=== PATIENT | female | born 1965 | race Caucasian/White ===

== ENCOUNTER → 2018-11-18 | Outpatient (CLI) | payer BC ==
--- NOTE | 2018-11-18 13:24 | Diagnostic Imaging Report ---
PATIENT HISTORY: STRESS FRACTURE LEFT FOOT. TECHNIQUE: Three views of the left foot. COMPARISON: 10/11/2018. FINDINGS: Redemonstrated is a nondisplaced fracture of the proximal left metatarsal shaft. There appear to be mild healing changes with adjacent sclerosis and periosteal reaction. Alignment appears unchanged. No new fractures are seen. IMPRESSION: 1. Healing fracture of the proximal left metatarsal shaft in stable alignment. Dictated by: Dictated on workstation # [id number]
== END ==
LOC: RAD FS 12:58
PROVIDERS: ATTEND Nurse Practitioner
DX: M84.375D Stress fracture, left foot, subsequent encounter for fracture with routine healing (principal)
CPT/HCPCS: 73630

== ENCOUNTER → 2018-12-21 | Outpatient (CLI) | payer BC ==
--- NOTE | 2018-12-21 10:47 | Diagnostic Imaging Report ---
INDICATION: Followup fracture left fourth metatarsal. FINDINGS: The transverse fracture proximal shaft of the fourth metatarsal is again demonstrated. There has been some continued bony callus formation though fracture line is still visible. Alignment is good. No new fractures have developed. No significant degenerative changes noted throughout the foot. IMPRESSION: Nondisplaced proximal fourth metatarsal shaft fracture with continued healing. Dictated by: Dictated on workstation # [id number]
== END ==
LOC: RAD FS 08:58
PROVIDERS: ATTEND Nurse Practitioner
DX: S92.345D Nondisplaced fracture of fourth metatarsal bone, left foot, subsequent encounter for fracture with routine healing (principal)
CPT/HCPCS: 73630

== ENCOUNTER 2019-04-15 10:45 | Emergency (ER) | payer BC ==
[~2019-04-15] VITALS: Ht 160 cm; Wt 90.0 kg
[2019-04-15 11:20] LABS: WHITE BLOOD COUNT 20.2 10^3/uL (4.3-11.0)
--- NOTE | 2019-04-15 11:20 | ED General ---
General Stated Complaint: DIZZINESS,FALL Source of Information: Patient Exam Limitations: No Limitations (CRISTOBAL AL MED STUDENT) History of Present Illness Date Seen by Provider: Apr 15, 2019 Time Seen by Provider: 11:01 Initial Comments Pt presents to ED from [facility] clinic after reporting fall at home. States she got up from sitting to go to the kitchen, experienced lightheadedness and fell. She did not lose consciousness and fell onto her rear. She states the area she fell on is not painful, just sore. Pt has history of anemia requiring blood transfusions, last two years ago. [facility] MECHANIC CHIEF referred her to clinic for possible blood transfusion. Previously fell one week ago but denies injury/LOC from that fall as well. Past medical history is notable for vasculitis. Pt also experiencing symptoms related to sinusitis she was diagnosed with by [facility] including cough, chest congestion and shortness of breath lasting two weeks. Timing/Duration: 1-3 Hours Severity: Mild Associated Systoms: No Chest Pain, No Cough, No Fever/Chills; Headaches; No Loss of Appetite; Malaise; No Nausea/Vomiting, No Shortness of Air (CRISTOBAL AL MED STUDENT) Initial Comments Here with report of intermittent dizziness and 2 falls at home. Does have history of anemia. Seen at [facility] and referred here for concerns about low blood counts. Her blood count was not checked there though. Denies hitting her head but she is not entirely sure. She does have drooping right eyelid that has been going on for about 3 months. Denies nausea or vomiting. Denies fever or chills. Has been treated for sinusitis for the last few weeks and she is currently on her second round of doxycycline for this. Denies dysuria but did have diarrhea this morning. Severity: Mild Associated Systoms: No Fever/Chills, No Shortness of Air (DION SCALES MD) Allergies and Home Medications Allergies Coded Allergies: cephradine (Verified Allergy, Unknown, 04/15/19) simvastatin (Verified Allergy, Unknown, 04/15/19) Patient Home Medication List Home Medication List Reviewed: Yes (CRISTOBAL AL MED STUDENT) Home Medication List Reviewed: Yes (DION SCALES MD) Review of Systems Review of Systems Constitutional: No chills, No dizziness, No fever, No malaise, No weakness EENTM: nose congestion (related to sinusitis ); No ear discharge, No hearing loss, No ear pain, No eye pain, No vision loss Respiratory: see HPI, cough, short of breath Cardiovascular: No chest pain, No edema, No Hx of Intervention, No palpitations Gastrointestinal: No abdominal pain, No constipation; diarrhea (one episode this morning); No dysphagia, No loss of appetite, No nausea, No vomiting Genitourinary: No frequency, No incontinence, No pain Musculoskeletal: No back pain, No joint pain Skin: No lesions, No lumps, No rash Psychiatric/Neurological: Headache; Denies Numbness, Denies Tingling, Denies Tremors, Denies Weakness Hematologic/Lymphatic: Anemia, Easy Bruising (CRISTOBAL AL,MED STUDENT) All Other Systems Reviewed Negative Unless Noted: Yes (DION SCALES MD) Past Xntveag-Vmcerb-Zzdaud Hx Past Med/Social Hx: Reviewed Nursing Past Med/Soc Hx (DION SCALES MD) Patient Social History Recent Foreign Travel: No Contact w/Someone Who Travel: No (CRISTOBAL AL MED STUDENT) Family Medical History Reviewed Nursing Family Hx (DION SCALES MD) Heart Disease, CAD Under 55 Years Old (father of [place] at 38) (CRISTOBAL ALMED STUDENT) Physical Exam Vital Signs Vital Signs - First Documented 04/15/19 11:00 Temp 35.7 Pulse 71 Resp 18 B/P (MAP) 111/59 (76) Pulse Ox 100 O2 Delivery Room Air (DION SCALES MD) Vital Signs Capillary Refill : (CRISTOBAL ALMED STUDENT) Height, Weight, BMI Height: '" Weight: lbs. oz. kg; BMI Method: General Appearance: No Apparent Distress, WD/WN Eyes: Bilateral Eye Normal Inspection, Bilateral Eye PERRL, Bilateral Eye EOMI HEENT: TMs Normal, Pharynx Normal Neck: Non Tender, Supple Respiratory: Chest Non Tender, Lungs Clear, Normal Breath Sounds, No Accessory Muscle Use, No Respiratory Distress Cardiovascular: Regular Rate, Rhythm, No Edema, No Gallop, No Murmur, Normal Peripheral Pulses Gastrointestinal: Non Tender, Soft Back: No CVA Tenderness, No Vertebral Tenderness Extremity: No Calf Tenderness Neurologic/Psychiatric: Alert, Oriented x3 Skin: Normal Color, Warm/Dry (CRISTOBAL AL,MED STUDENT) General Appearance: No Apparent Distress, WD/WN Eyes: Left Eye Other (lid droop to the left eye that is chronic for 3 months) HEENT: TMs Normal, Pharynx Normal Neck: Non Tender, Supple Respiratory: Lungs Clear, Normal Breath Sounds Cardiovascular: Regular Rate, Rhythm, No Murmur Gastrointestinal: Non Tender, Soft Back: No CVA Tenderness, No Vertebral Tenderness Extremity: Normal Range of Motion, Non Tender, No Calf Tenderness Neurologic/Psychiatric: Alert, Oriented x3 Skin: Normal Color, Warm/Dry (DION SCALES MD) Progress/Results/Core Measures Suspected Sepsis SIRS Temperature: Pulse: Respiratory Rate: Laboratory Tests 04/15/19 11:00: White Blood Count 20.2H Blood Pressure / Mean: Laboratory Tests 04/15/19 11:00: Creatinine 1.14, Platelet Count 538H, Total Bilirubin 0.5 (CRISTOBAL AL,MED STUDENT) Results/Orders Lab Results Laboratory Tests Test 04/15/19 11:00 04/15/19 11:55 Range/Units White Blood Count 20.2 H 4.3-11.0 10^3/uL Red Blood Count 4.01 L 4.35-5.85 10^6/uL Hemoglobin 9.6 L 11.5-16.0 G/DL Hematocrit 31 L 35-52 % Mean Corpuscular Volume 77 L 80-99 FL Mean Corpuscular Hemoglobin 24 L 25-34 PG Mean Corpuscular Hemoglobin Concent 31 L 32-36 G/DL Red Cell Distribution Width 18.3 H 10.0-14.5 % Platelet Count 538 H 130-400 10^3/uL Mean Platelet Volume 10.3 7.4-10.4 FL Neutrophils (%) (Auto) 85 H 42-75 % Lymphocytes (%) (Auto) 8 L 12-44 % Monocytes (%) (Auto) 6 0-12 % Eosinophils (%) (Auto) 0 0-10 % Basophils (%) (Auto) 0 0-10 % Neutrophils # (Auto) 17.1 H 1.8-7.8 X 10^3 Lymphocytes # (Auto) 1.6 1.0-4.0 X 10^3 Monocytes # (Auto) 1.2 H 0.0-1.0 X 10^3 Eosinophils # (Auto) 0.0 0.0-0.3 10^3/uL Basophils # (Auto) 0.1 0.0-0.1 10^3/uL Neutrophils % (Manual) 82 % Lymphocytes % (Manual) 7 % Monocytes % (Manual) 6 % Eosinophils % (Manual) 0 % Basophils % (Manual) 0 % Metamyelocytes % 1 % Band Neutrophils 4 % Nucleated Red Blood Cells 1 Hypochromasia MODERATE Anisocytosis SLIGHT Microcytosis MODERATE Sodium Level 132 L 135-145 MMOL/L Potassium Level 3.9 3.6-5.0 MMOL/L Chloride Level 94 L 98-107 MMOL/L Carbon Dioxide Level 20 L 21-32 MMOL/L Anion Gap 18 H 5-14 MMOL/L Blood Urea Nitrogen 52 H 7-18 MG/DL Creatinine 1.14 0.60-1.30 MG/DL Estimat Glomerular Filtration Rate 50 BUN/Creatinine Ratio 46 Glucose Level 113 H 70-105 MG/DL Calcium Level 9.4 8.5-10.1 MG/DL Corrected Calcium 9.9 8.5-10.1 MG/DL Total Bilirubin 0.5 0.1-1.0 MG/DL Aspartate Amino Transf (AST/SGOT) 46 H 5-34 U/L Alanine Aminotransferase (ALT/SGPT) 24 0-55 U/L Alkaline Phosphatase 478 H 40-136 U/L Total Protein 6.7 6.4-8.2 GM/DL Albumin 3.4 3.2-4.5 GM/DL Urine Color YELLOW Urine Clarity CLEAR Urine pH 5.5 5-9 Urine Specific [place] 1.020 1.016-1.022 Urine Protein NEGATIVE NEGATIVE Urine Glucose (UA) NEGATIVE NEGATIVE Urine Ketones NEGATIVE NEGATIVE Urine Nitrite NEGATIVE NEGATIVE Urine Bilirubin NEGATIVE NEGATIVE Urine Urobilinogen 0.2 < = 1.0 MG/DL Urine Leukocyte Esterase 1+ H NEGATIVE Urine RBC (Auto) NEGATIVE NEGATIVE Urine RBC NONE /HPF Urine WBC 10-25 H /HPF Urine Squamous Epithelial Cells 5-10 /HPF Urine Crystals NONE /LPF Urine Bacteria MODERATE H /HPF Urine Casts PRESENT /LPF Urine Hyaline Casts 0-2 H /LPF Urine Mucus NEGATIVE /LPF Urine Culture Indicated YES (DION SCALES MD) My Orders Orders - DION SCALES MD Ct Head Wo (04/15/19 10:54) Cbc With Automated Diff (04/15/19 10:54) Comprehensive Metabolic Panel (04/15/19 10:54) Ed Iv/Invasive Line Start (04/15/19 10:54) Ua Culture If Indicated (04/15/19 11:20) Ns Iv 500 Ml (Sodium Chloride 0.9%) (04/15/19 11:21) Manual Differential (04/15/19 11:00) Ondansetron Injection (Zofran Injectio (04/15/19 12:15) Chest Pa/Lat (2 View) (04/15/19 12:16) Urine Culture (04/15/19 11:55) (DION SCALES MD) Medications Given in ED Current Medications Medications Dose Ordered Sig/Eduardo Route Start Time Stop Time Status Last Admin Dose Admin Ondansetron HCl 4 mg ONCE ONCE IVP 04/15/19 12:15 04/15/19 12:16 DC 04/15/19 12:09 4 MG Sodium Chloride 500 ml @ 0 mls/hr Q0M ONCE IV 04/15/19 11:21 04/15/19 11:22 DC 04/15/19 11:30 999 MLS/HR (DION SCALES MD) Vital Signs/I&O 04/15/19 11:00 Temp 35.7 Pulse 71 Resp 18 B/P (MAP) 111/59 (76) Pulse Ox 100 O2 Delivery Room Air (DION SCALES MD) Vital Signs/I&O Capillary Refill : (CRISTOBAL AL,MED STUDENT) Progress Note : Time: 11:25 Progress Note Seen and evaluated. Ordering CBC, CMP, UA and CRP to evaluate lightheadedness. Considering pt has now had two falls within a week, will perform head CT to eval for acute processes. Admin 500mL normal saline. (CRISTOBAL AL,MED STUDENT) Progress Note : Progress Note I have seen and evaluated the patient and agree with above except as indicated. Have directed the plan of care. IV, labs, normal saline 500 mL bolus ordered. UA ordered as well as two-view chest x-ray ordered. Patient is feeling better throughout the course. 1330: Patient is improved but does have mild headache return. Toradol 30 mg IV ordered. UA is concerning for possible urinary tract infection. We will stop the doxycycline and initiate Omnicef. She has taken Omnicef without difficulty in the past. She feels comfortable going home. Discharged home with return precautions. Patient verbalize understanding instructions and agreement with plan. Alkaline phosphatase was elevated at are not sure the reason for that. She will follow-up with her doctor and with hematology clinic, Dr. Mayer. I have asked her to talk with them about this as well. I have sent a copy of the chart both clinics. Discharged home with return precautions. Patient verbalize understanding instructions and agreement with plan (DION SCALES MD) Diagnostic Imaging Diagonstic Imaging: CT Plain Films/CT/US/NM/MRI: head Comments [facility], [place], [place] NAME: [facility]E [facility] REC#: [id number] PT STATUS: REG ER : 1965 PHYSICIAN: DION SCALES MD ADMIT DATE: 04/15/19/ER FS Draft Date of Exam:04/15/19 CT HEAD WO PROCEDURE: CT head without contrast. TECHNIQUE: Multiple contiguous axial images were obtained through the brain without the use of intravenous contrast. Auto Exposure Controls were utilized during the CT exam to meet ALARA standards for radiation dose reduction. INDICATION: Fall and dizziness. No prior studies are available for comparison. The ventricles and sulci are within normal limits. No sulcal effacement or midline shift is identified. No acute intra-axial or extra-axial hemorrhage is detected. Cisterns are patent. Visualized paranasal sinuses are clear. IMPRESSION: No acute intracranial process is detected. Dictated on workstation # [id number] Dict: 04/15/19 1130 Trans: 04/15/19 1131 [facility] [id number] Interpreted by: KATIE ADDISON MD Electronically signed by: Diagonstic Imaging: Xray Plain Films/CT/US/NM/MRI: chest Comments [facility] [place] [place] NAME: THEE [facility] REC#: [id number] PT STATUS: REG ER : 1965 PHYSICIAN: DION SCALES MD ADMIT DATE: 04/15/19/ER FS Draft Date of Exam:04/15/19 CHEST PA/LAT (2 VIEW) EXAMINATION: CHEST (PA AND LATERAL) CLINICAL INDICATION: 53-year-old female, dizziness and falls. COMPARISON: None. FINDINGS: Heart size and mediastinal contours are unremarkable. There is no identified pneumothorax. There is no pleural effusion. There is no identified focal airspace consolidation. IMPRESSION: No identified acute cardiopulmonary abnormality. Dictated on workstation # [id number] Dict: 04/15/19 1229 Trans: 04/15/19 1235 [facility] [id number] Interpreted by: BENNY YUSUF MD Electronically signed by: (CRISTOBAL AL,MED STUDENT) Departure Impression Primary Impression: Urinary tract infection Qualified Codes: N30.00 - Acute cystitis without hematuria Additional Impressions: Sinusitis Qualified Codes: J01.90 - Acute sinusitis, unspecified Elevated alkaline phosphatase level Disposition: 01 HOME, SELF-CARE Condition: Improved Departure-Patient Inst. Decision time for Depature: 13:37 (DION SCALES MD) Referrals: [facility] [place]) Primary Care Physician BETH VVIAR APRN (Family) Primary Care Physician Patient Instructions: Urinary Tract Infection, Adult (DC), Sinusitis, Adult (DC), Alkaline Phosphatase Test Add. Discharge Instructions: Stop the doxycycline and start the Omnicef as prescribed. Follow-up with your doctor and your assistant case manager for recheck and further evaluation. Discussed with them about your elevated alkaline phosphatase level as they may need to follow that. Return for worse pain, fever, vomiting, weakness, breathing problems or other concerns as needed. Drink plenty of fluids. Scripts Cefdinir (Cefdinir) 300 Mg Capsule 300 MG PO BID, #14 CAP 0 Refills Prov: DION SCALES MD 04/15/19 Copy Copies To 1: GREG MAYER MD Copies To 2: NUZHAT GRAFF MD, DREW,MED STUDENT Apr 15, 2019 11:19 DION SCALES MD Apr 15, 2019 13:37
[2019-04-15 11:21] LABS: BASOPHILS # (AUTO) 0.1 10^3/uL (0.0-0.1); BASOPHILS % (AUTO) 0 % (0-10); EOSINOPHILS % (AUTO) 0 % (0-10); HEMATOCRIT 31 % (35-52); HEMOGLOBIN 9.6 G/DL (11.5-16.0); LYMPHOCYTES # (AUTO) 1.6 X 10^3 (1.0-4.0); LYMPHOCYTES % (AUTO) 8 % (12-44); MEAN CORPUSCULAR HEMOGLOBIN 24 PG (25-34); MEAN CORPUSCULAR HGB CONC 31 G/DL (32-36); MEAN CORPUSCULAR VOLUME 77 FL (80-99); MEAN PLATELET VOLUME 10.3 FL (7.4-10.4); MONOCYTES # (AUTO) 1.2 X 10^3 (0.0-1.0); MONOCYTES % (AUTO) 6 % (0-12); NEUTROPHILS # (AUTO) 17.1 X 10^3 (1.8-7.8); NEUTROPHILS % (AUTO) 85 % (42-75); PLATELET COUNT 538 10^3/uL (130-400); RED CELL DISTRIBUTION WIDTH 18.3 % (10.0-14.5)
[2019-04-15] MEDS ORDERED: NS IV 500 ML 500 ML IV ONE (11:21)
[2019-04-15 11:30] LABS: POTASSIUM 3.9 MMOL/L (3.6-5.0)
[2019-04-15 11:31] LABS: ALBUMIN 3.4 GM/DL (3.2-4.5); BILIRUBIN,TOTAL 0.5 MG/DL (0.1-1.0); CALCIUM 9.4 MG/DL (8.5-10.1); CREATININE SERUM 1.14 MG/DL (0.60-1.30); TOTAL PROTEIN 6.7 GM/DL (6.4-8.2)
--- NOTE | 2019-04-15 11:32 | Diagnostic Imaging Report ---
PROCEDURE: CT head without contrast. TECHNIQUE: Multiple contiguous axial images were obtained through the brain without the use of intravenous contrast. Auto Exposure Controls were utilized during the CT exam to meet ALARA standards for radiation dose reduction. INDICATION: Fall and dizziness. No prior studies are available for comparison. The ventricles and sulci are within normal limits. No sulcal effacement or midline shift is identified. No acute intra-axial or extra-axial hemorrhage is detected. Cisterns are patent. Visualized paranasal sinuses are clear. IMPRESSION: No acute intracranial process is detected. Dictated by: Dictated on workstation # [id number]
[2019-04-15] MEDS ORDERED: ONDANSETRON 4 MG/2 ML (SDV) Z0FRAN IVP ONE (12:15)
[2019-04-15 12:19] LABS: BAND NEUTROPHILS 4 %; BASOPHILS % (MANUAL) 0 %; EOSINOPHILS % (MANUAL) 0 %; LYMPHOCYTES % (MANUAL) 7 %; METAMYELOCYTES % 1 %; MONOCYTES % (MANUAL) 6 %; NEUTROPHILS % (MANUAL) 82 %; NUCLEATED RED BLOOD CELLS 1
[2019-04-15 12:20] LABS: ANISOCYTOSIS SLIGHT; HYPOCHROMASIA MODERATE; MICROCYTOSIS MODERATE
[2019-04-15 12:20] LABS: BILIRUBIN,URINE NEGATIVE (NEGATIVE); CLARITY,URINE CLEAR; COLOR,URINE YELLOW; GLUCOSE, URINE (UA) NEGATIVE (NEGATIVE); KETONES,URINE NEGATIVE (NEGATIVE); NITRITE,URINE NEGATIVE (NEGATIVE); PH,URINE 5.5 (5-9); PROTEIN,URINE NEGATIVE (NEGATIVE)
[2019-04-15 12:21] LABS: BACTERIA,URINE MODERATE /HPF; HYALINE CASTS, URINE 0-2 /LPF; LEUKOCYTE ESTERASE ,URINE 1+ (NEGATIVE)
--- NOTE | 2019-04-15 12:36 | Diagnostic Imaging Report ---
EXAMINATION: CHEST (PA AND LATERAL) CLINICAL INDICATION: 53-year-old female, dizziness and falls. COMPARISON: None. FINDINGS: Heart size and mediastinal contours are unremarkable. There is no identified pneumothorax. There is no pleural effusion. There is no identified focal airspace consolidation. IMPRESSION: No identified acute cardiopulmonary abnormality. Dictated by: Dictated on workstation # [id number]
[2019-04-15] MEDS ORDERED: KETOROLAC 30 MG/ML VIAL IVP STA (13:30)
[2019-04-15] MEDS ORDERED: CEFD300C3 PO (13:39)
[2019-04-15 14:08] VITALS: BP 131/63
== END 2019-04-15 13:56 | disposition home or self-care (01) ==
LOC: EDUNIT# 10:45 → ER FS 10:47
DX: N39.0 Urinary tract infection, site not specified (principal); J32.9 Chronic sinusitis, unspecified; R74.8 Abnormal levels of other serum enzymes; D64.9 Anemia, unspecified; Z88.8 Allergy status to other drugs, medicaments and biological substances
CPT/HCPCS: 36415; 70450; 71046; 80053; 81000; 85007; 85027; 87088; 96374; 96375

== ENCOUNTER → 2019-04-21 | Outpatient (CLI) | payer BC ==
[~2019-04-21] MED LIST: ACET-789 PO; ATEN50TA PO; CATHETER FLUSH 10 ML SYR IV PRN; CEFD300C3 PO; CYCL10TA9 PO; FOLI1TAB24 PO; HOLD METFORMIN - RECEIVED CONTRAST 20 ML VIAL IV SCH; HYDR50TA3 PO; IOHEXOL 350 MG/ML 100 ML (OMNIPAQUE 350) VIAL IV ONE; LEFL10TA16 PO; LORA10TA7 PO; LOSA100T57 PO; MECL12.579 PO; METO10TA3 PO; NS 100 ML (IVPB) BAG IV ONE; ONDA4TAB11 PO; PANT40TA3 PO; POTA10CA43 PO; PRED5TAB PO; RT-ALBUINH INH; TIMO5DRO5 OU
--- NOTE | 2019-04-21 15:33 | Diagnostic Imaging Report ---
PROCEDURE: CT chest with and without contrast. TECHNIQUE: Multiple contiguous axial images were obtained through the chest before and after administration of intravenous contrast. Auto Exposure Controls were utilized during the CT exam to meet ALARA standards for radiation dose reduction. INDICATION: Dizziness, shortness of breath, cough, nausea, vomiting, and diarrhea. COMPARISON: No previous. FINDINGS: Thoracic aorta is patent and nonaneurysmal. There is no central pulmonary arterial embolus or intraluminal filling defect. The heart and pericardium are unremarkable. There is no pleural effusion or pneumothorax. No focal infiltrate. No evidence for pulmonary edema. No fracture deformity. No suspicious lytic or sclerotic bony lesion. The visualized upper abdomen revealed some edematous and inflammatory changes peripheral to the proximal body, neck, and partially visualized head of the pancreas. There is background fatty infiltration of the liver. The gallbladder is surgically absent. No bile duct dilatation. The partially visualized extrahepatic duct demonstrated no appreciable radiodense stone. Portions of the duct distally in the lower pancreatic head and uncinate process do extend below the field of view of this exam. There was no visualized acute fluid collection or ascites. IMPRESSION: 1. Findings suspicious for at least mild acute pancreatitis without visualized bile duct dilatation and background fatty infiltration of the liver. No demonstrated acute fluid collection but only the top of the abdomen is seen at this study. 2. The chest itself appeared normal. Dictated by: Dictated on workstation # [id number]
== END ==
LOC: RAD FS 13:40
PROVIDERS: ATTEND Nurse Practitioner
DX: R06.02 Shortness of breath (principal); R42 Dizziness and giddiness; R07.9 Chest pain, unspecified; R11.2 Nausea with vomiting, unspecified; R19.7 Diarrhea, unspecified; R05 Cough; Z90.49 Acquired absence of other specified parts of digestive tract
CPT/HCPCS: 71270

== ENCOUNTER 2019-04-26 10:12 | Outpatient (CLI) | payer BC ==
[~2019-04-26] VITALS: Ht 162.6 cm; Wt 90.9 kg
[~2019-04-26 10:12] MED LIST changes: -ACET-789 PO; -ATEN50TA PO; -CATHETER FLUSH 10 ML SYR IV PRN; -CYCL10TA9 PO; -FOLI1TAB24 PO; -HOLD METFORMIN - RECEIVED CONTRAST 20 ML VIAL IV SCH; -HYDR50TA3 PO; -IOHEXOL 350 MG/ML 100 ML (OMNIPAQUE 350) VIAL IV ONE; -LEFL10TA16 PO; -LORA10TA7 PO; -LOSA100T57 PO; -MECL12.579 PO; -METO10TA3 PO; -NS 100 ML (IVPB) BAG IV ONE; -ONDA4TAB11 PO; -PANT40TA3 PO; -POTA10CA43 PO; -PRED5TAB PO; -RT-ALBUINH INH; -TIMO5DRO5 OU
[2019-04-26 10:18] VITALS: BP 113/54
[2019-04-26] MEDS ORDERED: NS IV 500 ML 500 ML IV SCH (10:45)
[2019-04-26] MEDS ORDERED: ONDA4TAB11 PO (14:17)
[2019-04-26] MEDS ORDERED: PANT40TA3 PO (14:17)
[2019-04-26 15:06] LABS: HEMOGLOBIN 8.4 G/DL (11.5-16.0)
[2019-04-26] MEDS ORDERED: HYDR50TA3 PO (16:42)
[2019-04-26] MEDS ORDERED: RT-ALBUINH INH (16:42)
[2019-04-26] MEDS ORDERED: ACET-789 PO (16:42)
[2019-04-26] MEDS ORDERED: CYCL10TA9 PO (16:42)
[2019-04-26] MEDS ORDERED: TIMO5DRO5 OU (16:42)
[2019-04-26] MEDS ORDERED: METO10TA3 PO (16:42)
[2019-04-26] MEDS ORDERED: LEFL10TA16 PO (16:42)
[2019-04-26] MEDS ORDERED: ATEN50TA PO (16:42)
[2019-04-26] MEDS ORDERED: POTA10CA43 PO (16:42)
[2019-04-26] MEDS ORDERED: MECL12.579 PO (16:42)
[2019-04-26] MEDS ORDERED: LOSA100T57 PO (16:42)
[2019-04-26] MEDS ORDERED: PRED5TAB PO (16:42)
[2019-04-26] MEDS ORDERED: FOLI1TAB24 PO (16:42)
[2019-04-26] MEDS ORDERED: LORA10TA7 PO (16:42)
== END 2019-04-26 14:55 | disposition home or self-care (01) ==
LOC: SDC 10:12
PROVIDERS: ATTEND Nurse Practitioner Family
DX: D64.9 Anemia, unspecified (principal)
CPT/HCPCS: 36415; 36430; 85014; 85018; 86850; 86900; 86901; 86920

== ENCOUNTER 2019-05-03 13:00 | Inpatient (IN) | payer BC ==
[~2019-05-03] VITALS: Ht 162.6 cm; Wt 89.4 kg
[~2019-05-03 13:00] MED LIST changes: +ACET-789 PO; +ATEN50TA PO; +CYCL10TA9 PO; +FOLI1TAB24 PO; +HYDR50TA3 PO; +LEFL10TA16 PO; +LORA10TA7 PO; +LOSA100T57 PO; +MECL12.579 PO; +METO10TA3 PO; +ONDA4TAB11 PO; +PANT40TA3 PO; +POTA10CA43 PO; +PRED5TAB PO; +RT-ALBUINH INH; +TIMO5DRO5 OU
[2019-05-03] MEDS ORDERED: ASPIRIN 81 MG CHEW (CHILDREN'S ASA) PO ONE (13:30)
[2019-05-03] MEDS ORDERED: NS IV 1000 ML 1,000 ML IV SCH ×2 (14:00→16:30)
[2019-05-03] MEDS ORDERED: ONDANSETRON 4 MG/2 ML (SDV) Z0FRAN IVP ONE (14:00)
--- NOTE | 2019-05-03 14:01 | ED General ---
General Chief Complaint: General Problems/Pain Stated Complaint: ABN LAB RESULTS Source of Information: Patient Exam Limitations: No Limitations History of Present Illness Date Seen by Provider: May 03, 2019 Time Seen by Provider: 13:40 Initial Comments The patient is a pleasant 53-year-old female who presents for evaluation of nausea. She was recently diagnosed with mild pancreatitis and hypo-Ludivina anemia. She was sent home with nausea medication as well as potassium pills. She states that she is unable to keep the potassium pills down. She was seen by her provider today who is uncomfortable sending her home because she was found to have a potassium of 3.0 and to be nauseated. She is alert and oriented 4, calm, and appears to be in no distress at this time. Timing/Duration: 1-2 Days Severity: Mild Associated Systoms: Nausea/Vomiting Allergies and Home Medications Allergies Coded Allergies: cephradine (Verified Allergy, Unknown, 04/15/19) simvastatin (Verified Allergy, Unknown, 04/15/19) Home Medications Acetaminophen with Codeine 1 Each Tablet, 1 EACH PO DAILY, (Reported) PRN FOR TENSION HEADACHE Albuterol Sulfate 1 Puff Puff, 2 PUFF INH Q6H, (Reported) 1 PUFF = 90 MCG Atenolol 50 Mg Tablet, 50 MG PO DAILY, (Reported) Cyclobenzaprine HCl 10 Mg Tablet, 10 MG PO TID PRN for MUSCLE SPASMS, (Reported) Folic Acid 1 Mg Tablet, 1 MG PO DAILY, (Reported) Hydrochlorothiazide 50 Mg Tablet, 50 MG PO DAILY, (Reported) Leflunomide 10 Mg Tablet, 10 MG PO DAILY, (Reported) Loratadine 10 Mg Tablet, 10 MG PO DAILY, (Reported) Losartan Potassium 100 Mg Tablet, 100 MG PO HS, (Reported) Meclizine HCl 12.5 Mg Tablet, 1-2 TAB PO TID, (Reported) Metoclopramide HCl 10 Mg Tablet, 10 MG PO QID, (Reported) Ondansetron 4 Mg Tab.rapdis, 4 MG PO UD, (Reported) ONE 4 MG TABLET ON THE TONGUE, ALLOW TO DISSOLVE Q 4-6 HRS PRN NAUSEA/VOMITING Pantoprazole Sodium 40 Mg Tablet.dr, 40 MG PO DAILY, (Reported) Potassium Chloride 10 Meq Capsule.er, 10 MEQ PO DAILY, (Reported) TAKE WITH FOOD Prednisone 5 Mg Tablet, 5 MG PO DAILY, (Reported) Timolol Maleate 5 Ml Drops, 1 DROP OU BID, (Reported) Patient Home Medication List Home Medication List Reviewed: Yes Review of Systems Review of Systems Constitutional: no symptoms reported EENTM: no symptoms reported Respiratory: no symptoms reported Cardiovascular: no symptoms reported Gastrointestinal: no symptoms reported Genitourinary: no symptoms reported Musculoskeletal: no symptoms reported Skin: no symptoms reported Psychiatric/Neurological: No Symptoms Reported Hematologic/Lymphatic: No Symptoms Reported Immunological/Allergic: no symptoms reported All Other Systems Reviewed Negative Unless Noted: Yes Past Vasodhv-Tajrcr-Ifglqw Hx Past Med/Social Hx: Reviewed Nursing Past Med/Soc Hx Patient Social History 2nd Hand Smoke Exposure: No Recent Foreign Travel: No Recent Hopitalizations: No Seasonal Allergies Seasonal Allergies: Yes Past Medical History Surgeries: Yes Respiratory: Yes Asthma Cardiac: Yes (VASCULITIS) High Cholesterol, Hypertension Gastrointestinal: Yes Gastroesophageal Reflux, Esophagitis, Irritable Bowel Musculoskeletal: Yes Arthritis Endocrine: Yes (NONALCOHOLIC LIVER DISEASE) HEENT: Yes Glaucoma Cancer: No Psychosocial: No Integumentary: No Blood Disorders: Yes Family Medical History Heart Disease, CAD Under 55 Years Old Physical Exam Vital Signs Vital Signs - First Documented 05/03/19 13:15 Temp 36.7 Pulse 79 Resp 18 B/P (MAP) 146/75 (98) Pulse Ox 100 O2 Delivery Room Air Capillary Refill : Height, Weight, BMI Height: '" Weight: lbs. oz. kg; 35.00 BMI Method: General Appearance: No Apparent Distress, WD/WN Eyes: Bilateral Eye Normal Inspection, Bilateral Eye PERRL, Bilateral Eye EOMI HEENT: PERRL/EOMI, Normal ENT Inspection, Pharynx Normal Respiratory: Chest Non Tender, Lungs Clear, Normal Breath Sounds Cardiovascular: Regular Rate, Rhythm, No Edema, No JVD Gastrointestinal: Normal Bowel Sounds, No Organomegaly, No Pulsatile Mass, Non Tender, Soft Extremity: Normal Capillary Refill, Normal Inspection, Non Tender Neurologic/Psychiatric: Alert, Oriented x3, No Motor/Sensory Deficits, Normal Mood/Affect Skin: Normal Color, Warm/Dry Progress/Results/Core Measures Suspected Sepsis SIRS Temperature: Pulse: Respiratory Rate: Laboratory Tests 05/03/19 14:13: White Blood Count 8.5 Blood Pressure / Mean: Laboratory Tests 05/03/19 14:13: Creatinine 1.30, Platelet Count 252, Total Bilirubin 0.4 Results/Orders Lab Results Laboratory Tests Test 05/03/19 14:13 Range/Units White Blood Count 8.5 4.3-11.0 10^3/uL Red Blood Count 3.67 L 4.35-5.85 10^6/uL Hemoglobin 9.3 L 11.5-16.0 G/DL Hematocrit 30 L 35-52 % Mean Corpuscular Volume 82 80-99 FL Mean Corpuscular Hemoglobin 25 25-34 PG Mean Corpuscular Hemoglobin Concent 31 L 32-36 G/DL Red Cell Distribution Width 23.3 H 10.0-14.5 % Platelet Count 252 130-400 10^3/uL Mean Platelet Volume 10.3 7.4-10.4 FL Neutrophils (%) (Auto) 82 H 42-75 % Lymphocytes (%) (Auto) 11 L 12-44 % Monocytes (%) (Auto) 5 0-12 % Eosinophils (%) (Auto) 1 0-10 % Basophils (%) (Auto) 1 0-10 % Neutrophils # (Auto) 7.0 1.8-7.8 X 10^3 Lymphocytes # (Auto) 0.9 L 1.0-4.0 X 10^3 Monocytes # (Auto) 0.4 0.0-1.0 X 10^3 Eosinophils # (Auto) 0.0 0.0-0.3 10^3/uL Basophils # (Auto) 0.1 0.0-0.1 10^3/uL Sodium Level 138 135-145 MMOL/L Potassium Level 3.3 L 3.6-5.0 MMOL/L Chloride Level 98 98-107 MMOL/L Carbon Dioxide Level 21 21-32 MMOL/L Anion Gap 19 H 5-14 MMOL/L Blood Urea Nitrogen 19 H 7-18 MG/DL Creatinine 1.30 0.60-1.30 MG/DL Estimat Glomerular Filtration Rate 43 BUN/Creatinine Ratio 15 Glucose Level 133 H 70-105 MG/DL Calcium Level 9.8 8.5-10.1 MG/DL Corrected Calcium 10.3 H 8.5-10.1 MG/DL Total Bilirubin 0.4 0.1-1.0 MG/DL Aspartate Amino Transf (AST/SGOT) 62 H 5-34 U/L Alanine Aminotransferase (ALT/SGPT) 37 0-55 U/L Alkaline Phosphatase 449 H 40-136 U/L Total Protein 6.3 L 6.4-8.2 GM/DL Albumin 3.4 3.2-4.5 GM/DL Amylase Level 126 H 25-125 U/L Lipase 432 H 8-78 U/L My Orders Orders - LILLY LARA DO Ekg Tracing (05/03/19 13:26) Cbc With Automated Diff (05/03/19 13:48) Comprehensive Metabolic Panel (05/03/19 13:48) Lipase (05/03/19 13:48) Amylase (05/03/19 13:48) Ns Iv 1000 Ml (Sodium Chloride 0.9%) (05/03/19 14:00) Ondansetron Injection (Zofran Injectio (05/03/19 14:00) Ns Iv 1000 Ml (Sodium Chloride 0.9%) (05/03/19 16:30) Potassium Chloride Powder (Klor Con 20 M (05/03/19 16:30) Medications Given in ED Current Medications Medications Dose Ordered Sig/Eduardo Route Start Time Stop Time Status Last Admin Dose Admin Ondansetron HCl 4 mg ONCE ONCE IVP 05/03/19 14:00 05/03/19 14:01 DC 05/03/19 14:20 4 MG Vital Signs/I&O 05/03/19 05/03/19 13:15 15:52 Temp 36.7 36.3 Pulse 79 70 Resp 18 14 B/P (MAP) 146/75 (98) 150/80 (103) Pulse Ox 100 100 O2 Delivery Room Air Room Air Capillary Refill : Progress Note : Progress Note @1625 - patient updated on lab results suggesting some pancreatitis and hypokalemia. She tried to go home and use Zofran for her nausea but this was not working and additionally she was unable to keep the potassium pills down. I offered to admit the patient for continued IV fluid hydration and replacement of her potassium and the patient agrees. Dr. Escobedo accepts the admission at [facility]. Departure Communication (Admissions) Time/Spoke to Admitting Phy: 16:31 Dr. Escobedo accepts the admission at [facility] Impression Primary Impression: Acute pancreatitis Additional Impressions: Hyponatremia Nausea Chronic anemia Disposition: 02 XFER SHT-TRM HOSP Condition: Stable Admissions Decision to Admit Reason: Admit from ER (General) Decision to Admit/Date: May 03, 2019 Time/Decision to Admit Time: 16:31 Departure-Patient Inst. Referrals: [facility] (PCP) Primary Care Physician BETH VIVAR APRN (Family) Primary Care Physician LILLY LARA DO May 03, 2019 14:01
[2019-05-03 14:46] LABS: HEMOGLOBIN 9.3 G/DL (11.5-16.0); MEAN CORPUSCULAR HEMOGLOBIN 25 PG (25-34); WHITE BLOOD COUNT 8.5 10^3/uL (4.3-11.0)
[2019-05-03 14:47] LABS: BASOPHILS # (AUTO) 0.1 10^3/uL (0.0-0.1); BASOPHILS % (AUTO) 1 % (0-10); EOSINOPHILS % (AUTO) 1 % (0-10); HEMATOCRIT 30 % (35-52); LYMPHOCYTES # (AUTO) 0.9 X 10^3 (1.0-4.0); LYMPHOCYTES % (AUTO) 11 % (12-44); MEAN CORPUSCULAR HGB CONC 31 G/DL (32-36); MEAN CORPUSCULAR VOLUME 82 FL (80-99); MEAN PLATELET VOLUME 10.3 FL (7.4-10.4); MONOCYTES # (AUTO) 0.4 X 10^3 (0.0-1.0); MONOCYTES % (AUTO) 5 % (0-12); NEUTROPHILS % (AUTO) 82 % (42-75); PLATELET COUNT 252 10^3/uL (130-400); RED CELL DISTRIBUTION WIDTH 23.3 % (10.0-14.5)
[2019-05-03 14:49] LABS: POTASSIUM 3.3 MMOL/L (3.6-5.0)
[2019-05-03 14:51] LABS: CREATININE SERUM 1.3 MG/DL (0.60-1.30)
[2019-05-03 14:52] LABS: ALBUMIN 3.4 GM/DL (3.2-4.5); BILIRUBIN,TOTAL 0.4 MG/DL (0.1-1.0); CALCIUM 9.8 MG/DL (8.5-10.1); TOTAL PROTEIN 6.3 GM/DL (6.4-8.2)
[2019-05-03 15:52] VITALS: BP 150/80
[2019-05-03] MEDS ORDERED: KCL 20 MEQ POWDER FOR ORAL SOLUTION PO ONE (16:30)
--- NOTE | 2019-05-03 17:40 | NUR ---
REPORT GIVEN TO THIS RN. PATIENT ON HIS WAY. INSTRUCTED TO NOTIFY SUZANNE WHEN PATIENT ARRIVES
--- NOTE | 2019-05-03 17:46 | NUR ---
1721: Patient departed ED en route to [facility] via private vehicle. 1725: Attempted to call report, nurse did not answer. 1740: Report given to MICK Bowie.
[2019-05-03 18:21] VITALS: BP 150/80
[2019-05-03] MEDS ORDERED: CATHETER FLUSH 10 ML SYR IV PRN (18:30)
--- NOTE | 2019-05-03 18:34 | NUR ---
THEE LAM admitted to room 420-1, with an admitting diagnosis of PANCRETITIS, on 05/03/19 from [facility], accompanied by FAMILY.THEE LAM introduced to surroundings, call light, bed controls, phone, TV, temperature control, lights, meal times, smoking policy, visitor policy, side rail policy, bathrooms and showers. Patient Rights given to patient in the handbook. THEE LAM verbalizes understanding that [facility] is not responsible for the loss or damage to any personal effects or valuables that are kept in the patients posession during their hospitalization. THEE LAM verbalizes understanding of Interdisciplinary Patient Education. Patient and/or family were informed about the Rapid Response Team and its purpose.
[2019-05-03] MEDS: NS IV 1000 ML 1,000 ML IV SCH (18:50)
--- NOTE | 2019-05-03 18:51 | Consultation - Surgery ---
History of Present Illness History of Present Illness Patient Consulted On(dinesh/time) 05/03/19 18:43 Date Seen by Provider: May 03, 2019 Time Seen by Provider: 18:43 History of Present Illness Pt here from [facility] after having been diagnosed 3 weeks ago with mild pancreatitis she has had increased nausea, vomiting, and diarrhea associated with the pancreatitis. She also had a few episodes of dizziness 3 weeks ago. The symptoms began to get better, but then she started taking the potassium oral pills and started having nausea and vomiting again. She was found to have hypokalemia at the doctors office and went to the ER to get IV potassium due to pills causing vomiting. Pain at rest is 3/10 after eating 9/10 described as dull aching most of the time, but does jump to sharp with eating. Pain is localized to epigastric region and radiates to RUQ and back. She has muscle weakness in her legs for the last 3-4 days, it is constant does not improved with rest and is wore with activity. She last vomited about a week ago after she took the potassium pills, she stopped taking the potassium pills and the vomiting improved. She has been having SOB with activity, but not with rest. She has been taking iron supplementation for chronic iron deficiency anemia. Allergies and Home Medications Allergies Coded Allergies: cephradine (Verified Allergy, Unknown, 04/15/19) simvastatin (Verified Allergy, Unknown, 04/15/19) Home Medications Acetaminophen with Codeine 1 Each Tablet, 1 EACH PO DAILY, (Reported) PRN FOR TENSION HEADACHE Albuterol Sulfate 1 Puff Puff, 2 PUFF INH Q6H, (Reported) 1 PUFF = 90 MCG Atenolol 50 Mg Tablet, 50 MG PO DAILY, (Reported) Cyclobenzaprine HCl 10 Mg Tablet, 10 MG PO TID PRN for MUSCLE SPASMS, (Reported) Folic Acid 1 Mg Tablet, 1 MG PO DAILY, (Reported) Hydrochlorothiazide 50 Mg Tablet, 50 MG PO DAILY, (Reported) Leflunomide 10 Mg Tablet, 10 MG PO DAILY, (Reported) Loratadine 10 Mg Tablet, 10 MG PO DAILY, (Reported) Losartan Potassium 100 Mg Tablet, 100 MG PO HS, (Reported) Meclizine HCl 12.5 Mg Tablet, 1-2 TAB PO TID, (Reported) Metoclopramide HCl 10 Mg Tablet, 10 MG PO QID, (Reported) Ondansetron 4 Mg Tab.rapdis, 4 MG PO UD, (Reported) ONE 4 MG TABLET ON THE TONGUE, ALLOW TO DISSOLVE Q 4-6 HRS PRN NAUSEA/VOMITING Pantoprazole Sodium 40 Mg Tablet.dr, 40 MG PO DAILY, (Reported) Potassium Chloride 10 Meq Capsule.er, 10 MEQ PO DAILY, (Reported) TAKE WITH FOOD Prednisone 5 Mg Tablet, 5 MG PO DAILY, (Reported) Timolol Maleate 5 Ml Drops, 1 DROP OU BID, (Reported) Past Zzasxaa-Qhbrdc-Gdwlok Hx Patient Social History Alcohol Use: Denies Use Recreational Drug Use: No Smoking Status: Never a Smoker 2nd Hand Smoke Exposure: No Recent Foreign Travel: No Contact w/Someone Who Travel: No Recent Infectious Disease Expo: No Recent Hopitalizations: No Seasonal Allergies Seasonal Allergies: Yes Surgeries History of Surgeries: Yes Surgeries: Appendectomy, Gallbladder, Hysterectomy, Oophorectomy Respiratory History of Respiratory Disorde: Yes Respiratory Disorders: Asthma Cardiovascular History of Cardiac Disorders: Yes (VASCULITIS) Cardiac Disorders: High Cholesterol, Hypertension Neurological History of Neurological Disord: No Genitourinary History of Genitourinary Disor: No Gastrointestinal History of Gastrointestinal Di: Yes Gastrointestinal Disorders: Gastroesophageal Reflux, Esophagitis, Irritable Bowel Musculoskeletal History of Musculoskeletal Dis: Yes Musculoskeletal Disorders: Arthritis, Rheumatoid Arthritis (With rheumatoid vasculitis) Endocrine History of Endocrine Disorders: Yes (NONALCOHOLIC LIVER DISEASE) HEENT History of HEENT Disorders: Yes HEENT Disorders: Dysphagia, Glaucoma Cancer History of Cancer: No Psychosocial History of Psychiatric Problem: No Integumentary History of Skin or Integumenta: No Blood Transfusions History of Blood Disorders: Yes Family Medical History Significant Family History: Heart Disease, CAD Under 55 Years Old Review of Systems-General Constitutional: No chills; dizziness; No fever; weakness EENTM: nose congestion; No hearing loss, No blurred vision, No double vision, No vision loss Respiratory: No cough; short of breath; No wheezing Cardiovascular: No chest pain, No Hx of Intervention, No palpitations Gastrointestinal: abdominal pain; No constipation; diarrhea; No melena; nausea, vomiting Genitourinary: No dysuria, No frequency, No hematuria Musculoskeletal: No gout; muscle weakness (Bilateral LE) Skin: No lesions, No rash Psychiatric/Neurological: Headache; Denies Numbness, Denies Tingling; Weakness Physical Exam-General Problems Physical Exam Vital Signs Vital Signs - First Documented 05/03/19 13:15 Temp 36.7 Pulse 79 Resp 18 B/P (MAP) 146/75 (98) Pulse Ox 100 O2 Delivery Room Air Capillary Refill : Less Than 3 Seconds General Appearance: WD/WN, no apparent distress HEENT: PERRL/EOMI Neck: normal inspection Respiratory: chest non-tender, lungs clear, no respiratory distress, no accessory muscle use, decreased breath sounds Cardiovascular: normal peripheral pulses, regular rate, rhythm Peripheral Pulses: 2+ Radial Pulses (R), 2+ Radial Pulses (L) Gastrointestinal: normal bowel sounds, soft, tenderness (Epigastric and RUQ) Extremities: no pedal edema, no calf tenderness Neurologic/Psychiatric: alert, normal mood/affect, oriented x 3 Skin: normal color, warm/dry Data Review Labs Laboratory Tests 05/03/19 14:13: White Blood Count 8.5, Red Blood Count 3.67L, Hemoglobin 9.3L, Hematocrit 30L, Mean Corpuscular Volume 82, Mean Corpuscular Hemoglobin 25, Mean Corpuscular Hemoglobin Concent 31L, Red Cell Distribution Width 23.3H, Platelet Count 252, Mean Platelet Volume 10.3, Neutrophils (%) (Auto) 82H, Lymphocytes (%) (Auto) 11L, Monocytes (%) (Auto) 5, Eosinophils (%) (Auto) 1, Basophils (%) (Auto) 1, Neutrophils # (Auto) 7.0, Lymphocytes # (Auto) 0.9L, Monocytes # (Auto) 0.4, Eosinophils # (Auto) 0.0, Basophils # (Auto) 0.1, Sodium Level 138, Potassium Level 3.3L, Chloride Level 98, Carbon Dioxide Level 21, Anion Gap 19H, Blood Urea Nitrogen 19H, Creatinine 1.30, Estimat Glomerular Filtration Rate 43, BUN/Creatinine Ratio 15, Glucose Level 133H, Calcium Level 9.8, Corrected Calcium 10.3H, Total Bilirubin 0.4, Aspartate Amino Transf (AST/SGOT) 62H, Alanine Aminotransferase (ALT/SGPT) 37, Alkaline Phosphatase 449H, Total Protein 6.3L, Albumin 3.4, Amylase Level 126H, Lipase 432H Assessment/Plan Assessment/Plan Assessment/Plan Pancreatitis -IV Fluids, NPO -Pain management -Zofran PRN for nausea -Consider Ultrasound vs CT with contrast, if symptoms persist and don't show signs of improvement Anemia, normocytic -monitor Clinical Quality Measures DVT/VTE Risk/Contraindication: Risk Factor Score Per Nursin RFS Level Per Nursing on Admit: 2=Moderate LUL FERREIRA MED STUD May 03, 2019 18:50
[2019-05-03 20:00] VITALS: BP 151/67
--- NOTE | 2019-05-03 20:39 | History & Physical-Hospitalist ---
History of Present Illness HPI/Chief Complaint CC: Pancreatitis with hypokalemia and anemia HPI: This is a 53yoWF clinic patient of Nilsa Winters with DR Albrecht who has a h/o vasculitis and sees Rheum along with iron deficiency managed by Dr Yarbrough who presented to the [facility] room 420 due to pancreatitis with elevated lipase of 400 with N/V for 3 weeks along with low potassium. Patient currently is not reporting any pain and will obtain consultation with Dr Richards for help with pancreatitis. Choly in the past is reported by the patient. Patient appears in no distress. Source: patient, RN/MD Exam Limitations: no limitations Date Seen 05/03/19 Time Seen by a Provider: 18:30 Attending Physician Griselda Hdz DO [facility] Referring Physician Date of Admission May 03, 2019 at 17:05 Home Medications & Allergies Home Medications Reviewed patient Home Medication Reconciliation performed by pharmacy medication reconciliations emissions testing and repair technician and/or nursing. Patients Allergies have been reviewed. Allergies Allergies Coded Allergies cephradine (Verified Allergy, Unknown, 04/15/19) simvastatin (Verified Allergy, Unknown, 04/15/19) Past Wcqqgnj-Qsuqns-Vnpwwu Hx Past Med/Social Hx: Reviewed Nursing Past Med/Soc Hx, Reviewed and Corrections made Patient Social History Marrital Status: single Employed/Student: unemployed Alcohol Use: Denies Use Recreational Drug Use: No Smoking Status: Never a Smoker 2nd Hand Smoke Exposure: No Recent Foreign Travel: No Contact w/other who traveled: No Recent Hopitalizations: No Recent Infectious Disease Expo: No Seasonal Allergies Seasonal Allergies: Yes Past Medical History Surgeries: Appendectomy, Gallbladder, Hysterectomy, Oophorectomy Cardiac: High Cholesterol, Hypertension Gastrointestinal: Gastroesophageal Reflux, Esophagitis, Irritable Bowel Musculoskeletal: Arthritis, Rheumatoid Arthritis (With rheumatoid vasculitis) vasculitis HEENT: Dysphagia, Glaucoma History of Blood Disorders: Yes Family History Heart Disease, CAD Under 55 Years Old Review of Systems Constitutional: see HPI Gastrointestinal: RUQ, loss of appetite, nausea, vomiting Physical Exam Physical Exam Vital Signs Vital Signs - First Documented 05/03/19 13:15 Temp 36.7 Pulse 79 Resp 18 B/P (MAP) 146/75 (98) Pulse Ox 100 O2 Delivery Room Air Capillary Refill : Less Than 3 Seconds Height, Weight, BMI Height: '" Weight: lbs. oz. kg; 33.81 BMI Method: General Appearance: No Apparent Distress, WD/WN, Chronically ill Eyes: Right Eye Normal Inspection, Right Eye PERRL HEENT: PERRL/EOMI, Normal ENT Inspection, Pharynx Normal, Moist Mucous Membranes Neck: Full Range of Motion, Normal Inspection, Non Tender Respiratory: Chest Non Tender, Lungs Clear, Normal Breath Sounds, No Accessory Muscle Use, No Respiratory Distress Cardiovascular: Regular Rate, Rhythm, No Edema, No Gallop, No JVD, No Murmur, Normal Peripheral Pulses Gastrointestinal: Normal Bowel Sounds, No Organomegaly, No Pulsatile Mass, Soft, Tenderness Back: Normal Inspection, No CVA Tenderness, No Vertebral Tenderness Extremity: Normal Capillary Refill, Normal Inspection, Normal Range of Motion, Non Tender, No Calf Tenderness, No Pedal Edema Neurologic/Psychiatric: Alert, Oriented x3, No Motor/Sensory Deficits, Normal Mood/Affect Skin: Normal Color, Warm/Dry Lymphatic: No Adenopathy Results Results/Procedures Labs Laboratory Tests 05/03/19 14:13 Patient resulted labs reviewed. Assessment/Plan Admission Diagnosis Assessment: Acute pancreatitis Abdominal pain N/V Dehydration Hypokalemia Anemia of iron deficiency h/o vasculitis Plan: CLD USG Monitor lipase and labs Venofer infusion Jeane Terrazas and Maurice appreciated Admission Status: Inpatient Order (span 2 midnights) Reason for Inpatient Admission: pancreatitis Diagnosis/Problems Diagnosis/Problems (1) Acute pancreatitis Status: Acute (2) Chronic anemia Status: Acute (3) Nausea Status: Acute (4) Hyponatremia Status: Acute (5) Elevated alkaline phosphatase level Status: Acute Clinical Quality Measures DVT/VTE Risk/Contraindication: Risk Factor Score Per Nursin RFS Level Per Nursing on Admit: 2=Moderate GRISELDA HDZ DO May 03, 2019 20:38
[2019-05-03] MEDS ORDERED: MELATONIN 3 MG TABLET PO PRN (20:45)
[2019-05-03] MEDS ORDERED: ACETAMINOPHEN 500 MG TAB (TYLENOL) PO PRN (20:45)
[2019-05-03] MEDS ORDERED: LOPERAMIDE 2 MG (IMODIUM) TABLET PO PRN (20:45)
[2019-05-03] MEDS ORDERED: diphenhydrAMINE 25 MG TAB (BENADRYL) PO PRN (20:45)
[2019-05-03] MEDS ORDERED: CALCIUM CARBONATE 500 MG (TUMS) TAB.CHEW PO PRN (20:45)
[2019-05-03] MEDS ORDERED: fentaNYL INJECTION 100 MCG/2 ML AMP IVP PRN (20:45)
[2019-05-03] MEDS ORDERED: ALPRAZolam 0.25 MG (XANAX) TAB PO PRN (20:45)
[2019-05-03] MEDS ORDERED: DOCUSATE SODIUM 100 MG (COLACE) CAP PO PRN (20:45)
[2019-05-03] MEDS: ONDANSETRON 4 MG/2 ML (SDV) Z0FRAN IVP PRN (22:12)
[2019-05-03] MEDS: HYDROcodone/APAP 5 MG/325 MG (LORTAB) TAB PO PRN (22:13)
[2019-05-03] MEDS: SENNA W/DOCUSATE (SENOKOT S) TABLET PO SCH (23:02)
[2019-05-03] MEDS: MAGNESIUM 1 GM/100 ML IVPB 100 ML IV SCH (23:03)
[2019-05-03] MEDS: ENOXAPARIN 40 MG/0.4 ML (LOVENOX) SYR SC SCH (23:10)
[2019-05-03] MEDS: POTASSIUM CL 10MEQ/50ML IVPB 50 ML IV SCH (23:18)
[2019-05-04] MEDS: POTASSIUM CL 10MEQ/50ML IVPB 50 ML IV SCH ×7 (00:20→14:32)
[2019-05-04 00:45] VITALS: BP 141/65
[2019-05-04] MEDS: NS IV 1000 ML 1,000 ML IV SCH ×3 (02:39→18:42)
[2019-05-04 04:09] VITALS: BP 124/60
[2019-05-04 06:17] LABS: BASOPHILS % (AUTO) 0 % (0-10); EOSINOPHILS # (AUTO) 0.1 10^3/uL (0.0-0.3); EOSINOPHILS % (AUTO) 1 % (0-10); HEMATOCRIT 26 % (35-52); HEMOGLOBIN 7.9 G/DL (11.5-16.0); LYMPHOCYTES # (AUTO) 1.9 X 10^3 (1.0-4.0); LYMPHOCYTES % (AUTO) 23 % (12-44); MEAN CORPUSCULAR HEMOGLOBIN 25 PG (25-34); MEAN CORPUSCULAR HGB CONC 31 G/DL (32-36); MEAN CORPUSCULAR VOLUME 82 FL (80-99); MEAN PLATELET VOLUME 9.9 FL (7.4-10.4); MONOCYTES # (AUTO) 1.2 X 10^3 (0.0-1.0); MONOCYTES % (AUTO) 14 % (0-12); NEUTROPHILS # (AUTO) 5.2 X 10^3 (1.8-7.8); NEUTROPHILS % (AUTO) 62 % (42-75); PLATELET COUNT 239 10^3/uL (130-400); RED CELL DISTRIBUTION WIDTH 23.5 % (10.0-14.5); WHITE BLOOD COUNT 8.4 10^3/uL (4.3-11.0)
[2019-05-04 06:33] LABS: ALBUMIN 2.9 GM/DL (3.2-4.5); BILIRUBIN,TOTAL 0.3 MG/DL (0.1-1.0); CREATININE SERUM 1.1 MG/DL (0.60-1.30); POTASSIUM 3.4 MMOL/L (3.6-5.0); TOTAL PROTEIN 5.4 GM/DL (6.4-8.2)
--- NOTE | 2019-05-04 06:58 | Progress Note - Surgery ---
Subjective Date Seen by a Provider: May 04, 2019 Time Seen by a Provider: 06:30 Subjective/Events-last exam Pt reports having one episode of pain that she rated as a 7/10 last night associated with some nausea. She reports the pain improved with the pain medication once it was able to be given to her by the nursing staff. She had a BM last night that was normal for her, and had a normal non painful urination as well. She states that a couple times she thought she ahd to pee she only had a few dribbles, but the third time she had a full urination that she felt emptied her bladder. She states she did not sleep much overnight due to anxiety and being in the hospital in general. Review of Systems General: No Chills, No Fatigue HEENT: No Head Aches, No Visual Changes Pulmonary: No Dyspnea, No Cough Cardiovascular: No: Chest Pain, Palpitations Gastrointestinal: Nausea, Abdominal Pain; No: Vomiting, Diarrhea, Constipation Genitourinary: No Dysuria, No Hematuria Musculoskeletal: back pain (Related to abdominal pain); No: leg pain Neurological: No: Weakness, Numbness, Confusion Objective Exam Vital Signs Date Time Temp Pulse Resp B/P (MAP) Pulse Ox O2 Delivery O2 Flow Rate FiO2 05/04/19 04:09 36.6 82 18 124/60 (81) 95 Room Air 05/04/19 00:45 36.6 78 20 141/65 (90) 98 Room Air 05/03/19 20:00 Room Air 05/03/19 20:00 36.6 73 20 151/67 (95) 100 Room Air 05/03/19 18:51 100 Room Air 05/03/19 18:21 35.8 80 22 150/80 100 Room Air 05/03/19 17:21 37.0 83 16 153/86 100 Room Air 05/03/19 15:52 36.3 70 14 150/80 (103) 100 Room Air 05/03/19 13:15 36.7 79 18 146/75 (98) 100 Room Air I & O 05/04/19 07:00 Intake Total 2170 ml Output Total 275 ml Balance 1895 ml Capillary Refill : Less Than 3 Seconds General Appearance: No Apparent Distress, WD/WN, Chronically ill HEENT: PERRL/EOMI, Normal ENT Inspection, Pharynx Normal, Moist Mucous Membran es Neck: Full Range of Motion, Normal Inspection, Non Tender Respiratory: Chest Non Tender, Lungs Clear, Normal Breath Sounds, No Accessory Muscle Use, No Respiratory Distress Cardiovascular: Regular Rate, Rhythm, No Edema, No Gallop, No JVD, No Murmur, Normal Peripheral Pulses Peripheral Pulses: 2+ Dorsalis Pedis (R), 2+ Left Dors-Pedis (L), 2+ Radial Pulses (R), 2+ Radial Pulses (L) Gastrointestinal: normal bowel sounds, soft, tenderness (Epigastric, RUQ, and Suprapubic) Extremity: Normal Capillary Refill, Normal Inspection, Normal Range of Motion, Non Tender, No Calf Tenderness, No Pedal Edema Neurologic/Psychiatric: Alert, Oriented x3, No Motor/Sensory Deficits, Normal Mood/Affect Skin: Normal Color, Warm/Dry Lymphatic: No Adenopathy Results Lab Laboratory Tests 05/03/19 14:13: White Blood Count 8.5, Red Blood Count 3.67L, Hemoglobin 9.3L, Hematocrit 30L, Mean Corpuscular Volume 82, Mean Corpuscular Hemoglobin 25, Mean Corpuscular Hemoglobin Concent 31L, Red Cell Distribution Width 23.3H, Platelet Count 252, Mean Platelet Volume 10.3, Neutrophils (%) (Auto) 82H, Lymphocytes (%) (Auto) 11L, Monocytes (%) (Auto) 5, Eosinophils (%) (Auto) 1, Basophils (%) (Auto) 1, Neutrophils # (Auto) 7.0, Lymphocytes # (Auto) 0.9L, Monocytes # (Auto) 0.4, Eos inophils # (Auto) 0.0, Basophils # (Auto) 0.1, Sodium Level 138, Potassium Level 3.3L, Chloride Level 98, Carbon Dioxide Level 21, Anion Gap 19H, Blood Urea Nitrogen 19H, Creatinine 1.30, Estimat Glomerular Filtration Rate 43, BUN/Creatinine Ratio 15, Glucose Level 133H, Calcium Level 9.8, Corrected Calcium 10.3H, Total Bilirubin 0.4, Aspartate Amino Transf (AST/SGOT) 62H, Alanine Aminotransferase (ALT/SGPT) 37, Alkaline Phosphatase 449H, Total Protein 6.3L, Albumin 3.4, Amylase Level 126H, Lipase 432H 05/04/19 06:05: White Blood Count 8.4, Red Blood Count 3.12L, Hemoglobin 7.9L, Hematocrit 26L, Mean Corpuscular Volume 82, Mean Corpuscular Hemoglobin 25, Mean Corpuscular Hemoglobin Concent 31L, Red Cell Distribution Width 23.5H, Platelet Count 239, Mean Platelet Volume 9.9, Neutrophils (%) (Auto) 62, Lymphocytes (%) (Auto) 23, Monocytes (%) (Auto) 14H, Eosinophils (%) (Auto) 1, Basophils (%) (Auto) 0, Neutrophils # (Auto) 5.2, Lymphocytes # (Auto) 1.9, Monocytes # (Auto) 1.2H, Eosinophils # (Auto) 0.1, Basophils # (Auto) 0.0, Sodium Level 138, Potassium Level 3.4L, Chloride Level 110#H, Carbon Dioxide Level 17L, Anion Gap 11, Blood Urea Nitrogen 17, Creatinine 1.10, Estimat Glomerular Filtration Rate 52, BUN/Creatinine Ratio 15, Glucose Level 84, Calcium Level 8.0L, Corrected Calcium 8.9, Total Bilirubin 0.3, Aspartate Amino Transf (AST/SGOT) 50H, Alanine Aminotransferase (ALT/SGPT) 35, Alkaline Phosphatase 364H, Total Protein 5.4L, Albumin 2.9L, Amylase Level 97, Lipase 151H Assessment/Plan Assessment/Plan Assessment/Plan Pancreatitis -IV Fluids, NPO -Pain management -Zofran PRN for nausea -Consider Ultrasound vs CT with contrast, if symptoms persist and don't show signs of improvement Anemia, normocytic -monitor Clinical Quality Measures DVT/VTE Risk/Contraindication: Risk Factor Score Per Nursin RFS Level Per Nursing on Admit: 2=Moderate LUL FERREIRA May 04, 2019 06:58
--- NOTE | 2019-05-04 07:13 | Consultation - Surgery ---
LUL FERREIRA [facility] 05/04/19 0713: History of Present Illness History of Present Illness Patient Consulted On(dinesh/time) 05/04/19 07:08 Date Seen by Provider: May 04, 2019 Time Seen by Provider: 06:30 History of Present Illness Pt here from [facility] after having been diagnosed 3 weeks ago with mild pancreatitis she has had increased nausea, vomiting, and diarrhea associated with the pancreatitis. She also had a few episodes of dizziness 3 weeks ago. The symptoms began to get better, but then she started taking the potassium oral pills and started having nausea and vomiting again. She was found to have hypokalemia at the doctors office and went to the ER to get IV potassium due to pills causing vomiting. Pain at rest is 3/10 after eating 9/10 described as dull aching most of the time, but does jump to sharp with eating. Pain is localized to epigastric region and radiates to RUQ and back. She has muscle weakness in her legs for the last 3-4 days, it is constant does not improved with rest and is wore with activity. She last vomited about a week ago after she took the potassium pills, she stopped taking the potassium pills and the vomiting improved. She has been having SOB with activity, but not with rest. She has been taking iron supplementation for chronic iron deficiency anemia. Pt reports having one episode of pain that she rated as a 7/10 last night associated with some nausea. She reports the pain improved with the pain medication once it was able to be given to her by the nursing staff. She had a BM last night that was normal for her, and had a normal non painful urination as well. She states that a couple times she thought she ahd to pee she only had a few dribbles, but the third time she had a full urination that she felt emptied her bladder. She states she did not sleep much overnight due to anxiety and being in the hospital in general. Allergies and Home Medications Allergies Coded Allergies: cephradine (Verified Allergy, Unknown, 04/15/19) simvastatin (Verified Allergy, Unknown, 04/15/19) Home Medications Acetaminophen with Codeine 1 Each Tablet, 1 TAB PO DAILY PRN for TENSION HEADACHE, (Reported) Albuterol Sulfate 1 Puff Puff, 2 PUFF INH Q6H PRN for SHORTNESS OF BREATH, (Reported) 1 PUFF = 90 MCG Alendronate Sodium 70 Mg Tablet, 70 MG PO Sa, (Reported) Atenolol 50 Mg Tablet, 50 MG PO DAILY, (Reported) Calcium Carbonate/Vitamin D3 1 Each Tablet, 1 TAB PO DAILY, (Reported) Carboxymethylcellulose Sodium 15 Ml Drops, 1 DROP OU BID, (Reported) Cetirizine HCl 10 Mg Tablet, 10 MG PO HS PRN for ALLERGIES, (Reported) Cyclobenzaprine HCl 10 Mg Tablet, 10 MG PO TID PRN for MUSCLE SPASMS, (Reported) Folic Acid 1 Mg Tablet, 1 MG PO DAILY, (Reported) Hydrochlorothiazide 50 Mg Tablet, 50 MG PO DAILY, (Reported) Leflunomide 20 Mg Tablet, 20 MG PO HS, (Reported) Loratadine 10 Mg Tablet, 10 MG PO DAILY, (Reported) Losartan Potassium 100 Mg Tablet, 100 MG PO HS, (Reported) Meclizine HCl 12.5 Mg Tablet, 12.5-25 MG PO TID PRN for DIZZINESS, (Reported) TAKES 1 TO 2 (12.5MG) TABLETS Metoclopramide HCl 10 Mg Tablet, 10 MG PO QID, (Reported) Ondansetron HCl 4 Mg Tablet, 4 MG PO Q4H PRN for NAUSEA/VOMITING-1ST LINE, (Reported) Pantoprazole Sodium 40 Mg Tablet.dr, 40 MG PO DAILY, (Reported) Prednisone 5 Mg Tablet, 5 MG PO DAILY, (Reported) Timolol Maleate 5 Ml Drops, 1 DROP OU BID, (Reported) Past Gofphtl-Ttrcuu-Rfxgsi Hx Patient Social History Alcohol Use: Denies Use Recreational Drug Use: No Smoking Status: Never a Smoker 2nd Hand Smoke Exposure: No Recent Foreign Travel: No Contact w/Someone Who Travel: No Recent Infectious Disease Expo: No Recent Hopitalizations: No Seasonal Allergies Seasonal Allergies: Yes Surgeries History of Surgeries: Yes Surgeries: Appendectomy, Gallbladder, Hysterectomy, Oophorectomy Respiratory History of Respiratory Disorde: Yes Respiratory Disorders: Asthma Cardiovascular History of Cardiac Disorders: Yes (VASCULITIS) Cardiac Disorders: High Cholesterol, Hypertension Neurological History of Neurological Disord: No Genitourinary History of Genitourinary Disor: No Gastrointestinal History of Gastrointestinal Di: Yes Gastrointestinal Disorders: Gastroesophageal Reflux, Esophagitis, Irritable Bowel Musculoskeletal History of Musculoskeletal Dis: Yes Musculoskeletal Disorders: Arthritis, Rheumatoid Arthritis (With rheumatoid vasculitis) Endocrine History of Endocrine Disorders: Yes (NONALCOHOLIC LIVER DISEASE) HEENT History of HEENT Disorders: Yes HEENT Disorders: Dysphagia, Glaucoma Cancer History of Cancer: No Psychosocial History of Psychiatric Problem: No Integumentary History of Skin or Integumenta: No Blood Transfusions History of Blood Disorders: Yes Family Medical History Significant Family History: Heart Disease, CAD Under 55 Years Old Review of Systems-General Constitutional: No chills, No dizziness, No fever EENTM: nose congestion; No hearing loss, No blurred vision, No double vision, No vision loss Respiratory: No cough; dyspnea on exertion; No wheezing Cardiovascular: No chest pain, No Hx of Intervention, No palpitations Gastrointestinal: abdominal pain (Epigastric radiates to RUQ); No constipation, No diarrhea; nausea, vomiting Genitourinary: No dysuria, No hematuria Musculoskeletal: back pain (Related to abdominal pain), muscle weakness (Bilateral LE) Skin: No lesions, No rash Psychiatric/Neurological: Denies Headache, Denies Numbness, Denies Tingling; Weakness Physical Exam-General Problems Physical Exam Vital Signs Vital Signs - First Documented 05/03/19 13:15 Temp 36.7 Pulse 79 Resp 18 B/P (MAP) 146/75 (98) Pulse Ox 100 O2 Delivery Room Air Capillary Refill : Less Than 3 Seconds General Appearance: WD/WN, no apparent distress HEENT: PERRL/EOMI Neck: supple, normal inspection Respiratory: chest non-tender, lungs clear, no respiratory distress, no accessory muscle use Cardiovascular: normal peripheral pulses, regular rate, rhythm, no murmur Peripheral Pulses: 2+ Dorsalis Pedis (R), 2+ Left Dors-Pedis (L), 2+ Radial Pulses (R), 2+ Radial Pulses (L) Gastrointestinal: normal bowel sounds, soft, tenderness (Epigastric, RUQ, and Suprapubic) Extremities: normal inspection, no pedal edema, no calf tenderness Neurologic/Psychiatric: no motor/sensory deficits, alert, normal mood/affect, oriented x 3 Skin: normal color, warm/dry Lymphatic: no adenopathy Data Review Labs Laboratory Tests 05/03/19 14:13: White Blood Count 8.5, Red Blood Count 3.67L, Hemoglobin 9.3L, Hematocrit 30L, Mean Corpuscular Volume 82, Mean Corpuscular Hemoglobin 25, Mean Corpuscular Hemoglobin Concent 31L, Red Cell Distribution Width 23.3H, Platelet Count 252, Mean Platelet Volume 10.3, Neutrophils (%) (Auto) 82H, Lymphocytes (%) (Auto) 11L, Monocytes (%) (Auto) 5, Eosinophils (%) (Auto) 1, Basophils (%) (Auto) 1, Neutrophils # (Auto) 7.0, Lymphocytes # (Auto) 0.9L, Monocytes # (Auto) 0.4, Eosinophils # (Auto) 0.0, Basophils # (Auto) 0.1, Sodium Level 138, Potassium Level 3.3L, Chloride Level 98, Carbon Dioxide Level 21, Anion Gap 19H, Blood Urea Nitrogen 19H, Creatinine 1.30, Estimat Glomerular Filtration Rate 43, BUN/Creatinine Ratio 15, Glucose Level 133H, Calcium Level 9.8, Corrected Calcium 10.3H, Total Bilirubin 0.4, Aspartate Amino Transf (AST/SGOT) 62H, Alanine Aminotransferase (ALT/SGPT) 37, Alkaline Phosphatase 449H, Total Protein 6.3L, Albumin 3.4, Amylase Level 126H, Lipase 432H 05/04/19 06:05: White Blood Count 8.4, Red Blood Count 3.12L, Hemoglobin 7.9L, Hematocrit 26L, Mean Corpuscular Volume 82, Mean Corpuscular Hemoglobin 25, Mean Corpuscular Hemoglobin Concent 31L, Red Cell Distribution Width 23.5H, Platelet Count 239, Mean Platelet Volume 9.9, Neutrophils (%) (Auto) 62, Lymphocytes (%) (Auto) 23, Monocytes (%) (Auto) 14H, Eosinophils (%) (Auto) 1, Basophils (%) (Auto) 0, Neutrophils # (Auto) 5.2, Lymphocytes # (Auto) 1.9, Monocytes # (Auto) 1.2H, Eosinophils # (Auto) 0.1, Basophils # (Auto) 0.0, Sodium Level 138, Potassium Level 3.4L, Chloride Level 110#H, Carbon Dioxide Level 17L, Anion Gap 11, Blood Urea Nitrogen 17, Creatinine 1.10, Estimat Glomerular Filtration Rate 52, BUN/C reatinine Ratio 15, Glucose Level 84, Calcium Level 8.0L, Corrected Calcium 8.9, Total Bilirubin 0.3, Aspartate Amino Transf (AST/SGOT) 50H, Alanine Aminotransferase (ALT/SGPT) 35, Alkaline Phosphatase 364H, Total Protein 5.4L, Albumin 2.9L, Amylase Level 97, Lipase 151H Assessment/Plan Assessment/Plan Assessment/Plan Pancreatitis -IV Fluids, NPO -Pain management -Zofran PRN for nausea -Consider Ultrasound vs CT with contrast, if symptoms persist and don't show signs of improvement Anemia, normocytic -monitor Clinical Quality Measures DVT/VTE Risk/Contraindication: Risk Factor Score Per Nursin RFS Level Per Nursing on Admit: 2=Moderate ABIMBOLA RICHARDS DO 05/04/19 1721: History of Present Illness History of Present Illness History of Present Illness Patient is a 53 year old female with epigastric abdomianal pain. Moves into back, sharp/dull pain. At worse was a 9/10. She has has associated nausea and vomiting and diarrhea. Patient was found to be hypokaemic and elevated amylase/lipase. This has been going on for about 3 weeks. Was initially found on a ct chest about 3 weeks ago. Currently her pain is controlled. She is tolerating clears. Had slight nausea earlier but better. Denies fever sweats chills shortness of breath or chest pain. Allergies and Home Medications Allergies Coded Allergies: cephradine (Verified Allergy, Unknown, 04/15/19) simvastatin (Verified Allergy, Unknown, 04/15/19) Home Medications Acetaminophen with Codeine 1 Each Tablet, 1 TAB PO DAILY PRN for TENSION HEADACHE, (Reported) Albuterol Sulfate 1 Puff Puff, 2 PUFF INH Q6H PRN for SHORTNESS OF BREATH, (Reported) 1 PUFF = 90 MCG Alendronate Sodium 70 Mg Tablet, 70 MG PO Sa, (Reported) Atenolol 50 Mg Tablet, 50 MG PO DAILY, (Reported) Calcium Carbonate/Vitamin D3 1 Each Tablet, 1 TAB PO DAILY, (Reported) Carboxymethylcellulose Sodium 15 Ml Drops, 1 DROP OU BID, (Reported) Cetirizine HCl 10 Mg Tablet, 10 MG PO HS PRN for ALLERGIES, (Reported) Cyclobenzaprine HCl 10 Mg Tablet, 10 MG PO TID PRN for MUSCLE SPASMS, (Reported) Folic Acid 1 Mg Tablet, 1 MG PO DAILY, (Reported) Hydrochlorothiazide 50 Mg Tablet, 50 MG PO DAILY, (Reported) Leflunomide 20 Mg Tablet, 20 MG PO HS, (Reported) Loratadine 10 Mg Tablet, 10 MG PO DAILY, (Reported) Losartan Potassium 100 Mg Tablet, 100 MG PO HS, (Reported) Meclizine HCl 12.5 Mg Tablet, 12.5-25 MG PO TID PRN for DIZZINESS, (Reported) TAKES 1 TO 2 (12.5MG) TABLETS Metoclopramide HCl 10 Mg Tablet, 10 MG PO QID, (Reported) Ondansetron HCl 4 Mg Tablet, 4 MG PO Q4H PRN for NAUSEA/VOMITING-1ST LINE, (Reported) Pantoprazole Sodium 40 Mg Tablet.dr, 40 MG PO DAILY, (Reported) Prednisone 5 Mg Tablet, 5 MG PO DAILY, (Reported) Timolol Maleate 5 Ml Drops, 1 DROP OU BID, (Reported) Patient Home Medication List Home Medication List Reviewed: Yes Past Uwqcyqg-Kfalue-Dsmmds Hx Patient Social History Alcohol Use: Denies Use Reviewed Nursing Assessment Reviewed/Agree w Nursing PMH: Yes Family Medical History Significant Family History: No Pertinent Family Hx Review of Systems-General Constitutional: No dizziness, No fever EENTM: nose congestion; No hearing loss, No blurred vision, No double vision Respiratory: No cough Gastrointestinal: abdominal pain (Epigastric radiates to RUQ), diarrhea, nausea, vomiting Musculoskeletal: back pain (Related to abdominal pain) Skin: no symptoms reported Psychiatric/Neurological: Denies Headache, Denies Numbness Physical Exam-General Problems Physical Exam General Appearance: WD/WN, no apparent distress, obese HEENT: PERRL/EOMI Neck: supple, normal inspection Respiratory: chest non-tender, no respiratory distress, no accessory muscle use Cardiovascular: normal peripheral pulses, regular rate, rhythm Gastrointestinal: soft, tenderness (Epigastric, RUQ) Back: no CVA tenderness Extremities: normal inspection, no pedal edema, no calf tenderness Neurologic/Psychiatric: no motor/sensory deficits, alert, normal mood/affect, oriented x 3 Skin: normal color, warm/dry Lymphatic: no adenopathy Assessment/Plan Assessment/Plan Assessment/Plan pancreatitis anemia patient clear liquids slowly advance as tolerates amylase lipase trending down. has had cholecystectomy previously no surgical intervention will follow monitor anemia transfuse prn prbc Supervisory-Addendum Brief Verification & Attestation Participated in pt care: history, MDM, physical Personally performed: exam, history, MDM, supervision of care Care discussed with: Medical Student Procedures: n/a Results interpretation: Verified all documentation Verification and Attestation of Medical Student E/M Service A medical student performed and documented this service in my presence. I reviewed and verified all information documented by the medical student and made modifications to such information, when appropriate. I personally performed the physical exam and medical decision making. Abimbola Richards, May 04, 2019,17:27 LUL FERREIRA [facility] May 04, 2019 07:13 ABIMBOLA RICHARDS DO May 04, 2019 17:21
[2019-05-04] MEDS: HYDROcodone/APAP 5 MG/325 MG (LORTAB) TAB PO PRN ×3 (07:50→19:58)
[2019-05-04] MEDS: SENNA W/DOCUSATE (SENOKOT S) TABLET PO SCH ×2 (07:50→20:02)
[2019-05-04] MEDS: ONDANSETRON 4 MG/2 ML (SDV) Z0FRAN IVP PRN ×3 (07:50→19:58)
[2019-05-04 08:17] VITALS: BP 121/67
[2019-05-04] MEDS ORDERED: ALEN70TA5 PO (09:29)
[2019-05-04] MEDS ORDERED: CARB15DR OU (09:29)
[2019-05-04] MEDS ORDERED: CALC-901 PO (09:29)
[2019-05-04] MEDS ORDERED: ACET1TAB43 PO (09:29)
[2019-05-04] MEDS ORDERED: ONDA4TAB10 PO (09:29)
[2019-05-04] MEDS ORDERED: LEFL20TA18 PO (09:29)
[2019-05-04] MEDS ORDERED: CETI10TA20 PO (09:40)
--- NOTE | 2019-05-04 09:41 | NUR ---
SPOKE WITH THE PATIENT ABOUT HER MEDICATIONS. SHE BROUGHT IN A LIST, THERE IS ALSO A LIST ON HER CHART FROM [facility]. I COMPARED THESE LISTS WITH THE EXT MED HX WELL HER BOTTLES SHE BROUGHT IN. SHE BROUGHT ALL OF HER MAINTENANCE MEDS BUT DID NOT BRING SOME OF HER PRN MEDICATIONS. HER PREDNISONE IS FILLED 5MG BID #60 FOR 30 DAYS 03-10-19 HOWEVER SHE STATES SHE NOW TAKES IT ONCE DAILY IN THE MORNING. IN ADDITION TO THE LIST SHE BROUGHT IN SHE VERIFIED SHE TAKES: FOLIC ACID 1MG DAILY MECLIZINE PRN ZYRTEC HS PRN SHE TAKES THE FOLLOWING OTC: REFRESH EYE DROPS OU BID LORATADINE 10MG DAILY CALCIUM +D 600/800 DAILY ZYRTEC HS PRN
--- NOTE | 2019-05-04 11:27 | Progress Note - Hospitalist ---
Subjective HPI/CC On Admission Date Seen by Provider: May 04, 2019 Time Seen by Provider: 10:15 CC: Pancreatitis with hypokalemia and anemia HPI: This is a 53yoWF clinic patient of Nilsa Winters with DR Albrecht who has a h/o vasculitis and sees Rheum along with iron deficiency managed by Dr Yarbrough who presented to the [facility] room 420 due to pancreatitis with elevated lipase of 400 with N/V for 3 weeks along with low potassium. Patient currently is not reporting any pain and will obtain consultation with Dr Richards for help with pancreatitis. Choly in the past is reported by the patient. Patient appears in no distress. Subjective/Events-last exam Pt much improved. Abdominal pain improved. Lipase is near normal now. Had a little bit of diarrhea today. Mother at the bedside. Hgb is 7.9. Potassium is 3.4. Will reach out to Dr. Yarbrough to see if we can give her an iron infusion today. Review of Systems General: Fatigue Gastrointestinal: Nausea, Abdominal Pain Objective Exam Vital Signs Vital Signs Date Time Temp Pulse Resp B/P (MAP) Pulse Ox O2 Delivery O2 Flow Rate FiO2 05/04/19 19:30 36.4 79 20 134/67 (89) 99 Room Air Capillary Refill : Less Than 3 Seconds General Appearance: No Apparent Distress, WD/WN, Chronically ill Respiratory: Lungs Clear Cardiovascular: Regular Rate, Rhythm Gastrointestinal: Non Tender, Soft Neurologic/Psychiatric: Alert, Oriented x3, No Motor/Sensory Deficits, Normal Mood/Affect Results/Procedures Lab Laboratory Tests 05/04/19 06:05 Patient resulted labs reviewed. Assessment/Plan Assessment and Plan Assess & Plan/Chief Complaint Assessment: Acute pancreatitis Abdominal pain N/V Dehydration Hypokalemia Anemia of iron deficiency h/o vasculitis Plan: CLD USG Monitor lipase and labs Venofer infusion Jeane Terrazas and Maurice appreciated Diagnosis/Problems Diagnosis/Problems (1) Acute pancreatitis Status: Acute (2) Chronic anemia Status: Acute (3) Nausea Status: Acute (4) Hyponatremia Status: Acute (5) Elevated alkaline phosphatase level Status: Acute Clinical Quality Measures DVT/VTE Risk/Contraindication: Risk Factor Score Per Nursin RFS Level Per Nursing on Admit: 2=Moderate WESLY HDZ DO May 04, 2019 11:27
[2019-05-04 12:00] VITALS: BP 119/56
[2019-05-04 15:39] VITALS: BP 124/74
--- NOTE | 2019-05-04 19:12 | Progress Note ---
Standard Progress Note Progress Notes/Assess & Plan Date Seen by a Provider: May 04, 2019 Time Seen by a Provider: 19:08 Progress/Assessment & Plan Patient is a 53 yo female who was admitted with pancreatitis. She sees me in clinic for multifactorial anemia with suspected component of iron deficiency. I believe most of the anemia is from chronic inflammation. She did receive the first of two iron infusions on 04/29/19. Her hgb is currently 7.9, probably from acute illness and hemodilution. No indication for transfusion or other acute treatment. Once patient is discharged, she will receive her second iron infusion in our clinic. GREG MAYER MD May 04, 2019 19:12
[2019-05-04 19:30] VITALS: BP 134/67
[2019-05-04] MEDS: ENOXAPARIN 40 MG/0.4 ML (LOVENOX) SYR SC SCH (20:01)
[2019-05-04] MEDS ORDERED: RT-ALBUTEROL SULF 2.5 MG/3 ML PRE-MIX VIAL INH PRN (20:30)
[2019-05-04] MEDS ORDERED: CYCLOBENZAPRINE 10 MG (FLEXERIL) TAB PO PRN (20:30)
[2019-05-04] MEDS ORDERED: NON-FORMULARY MEDICATION 1 EA EA (Ondansetron HCl 4 MG) PO PRN (20:30)
[2019-05-04] MEDS ORDERED: NON-FORMULARY MEDICATION 1 EA EA (Meclizine HCl 25 MG) PO PRN (20:30)
[2019-05-04] MEDS ORDERED: RX-ACETAMINOPHEN/CODEINE TAB PPK #4 PO PRN (20:30)
[2019-05-04] MEDS ORDERED: NON-FORMULARY MEDICATION 1 EA EA (Cetirizine HCl (Zyrtec) 10 MG) PO PRN (20:30)
[2019-05-04] MEDS ORDERED: ONDANSETRON 4 MG (ZOFRAN) ORAL DISSOLVE TAB PO PRN (20:45)
[2019-05-04] MEDS ORDERED: MECLIZINE 25 MG (ANTIVERT) TAB PO PRN (20:45)
[2019-05-04] MEDS ORDERED: APAP 300 MG/CODEINE 30 MG (TYLENOL #3) TAB PO PRN (20:45)
[2019-05-04] MEDS ORDERED: LOSARTAN 100 MG (COZAAR) TABLET PO SCH (21:00)
[2019-05-04] MEDS: TIMOLOL MALEATE 0.5% 5 ML (TIMOPTIC) BTL OU SCH (22:10)
[2019-05-04] MEDS: METOCLOPRAMIDE 10 MG (REGLAN) TAB PO SCH (22:10)
[2019-05-05 00:15] VITALS: BP 144/82
[2019-05-05] MEDS: NS IV 1000 ML 1,000 ML IV SCH (02:45)
[2019-05-05 04:20] VITALS: BP 142/83
[2019-05-05 06:19] LABS: BASOPHILS % (AUTO) 1 % (0-10); EOSINOPHILS # (AUTO) 0.2 10^3/uL (0.0-0.3); EOSINOPHILS % (AUTO) 2 % (0-10); HEMATOCRIT 29 % (35-52); HEMOGLOBIN 8.8 G/DL (11.5-16.0); LYMPHOCYTES # (AUTO) 1.7 X 10^3 (1.0-4.0); LYMPHOCYTES % (AUTO) 25 % (12-44); MEAN CORPUSCULAR HEMOGLOBIN 26 PG (25-34); MEAN CORPUSCULAR HGB CONC 31 G/DL (32-36); MEAN CORPUSCULAR VOLUME 84 FL (80-99); MEAN PLATELET VOLUME 9.8 FL (7.4-10.4); MONOCYTES # (AUTO) 0.7 X 10^3 (0.0-1.0); MONOCYTES % (AUTO) 10 % (0-12); NEUTROPHILS # (AUTO) 4.1 X 10^3 (1.8-7.8); NEUTROPHILS % (AUTO) 62 % (42-75); PLATELET COUNT 262 10^3/uL (130-400); RED CELL DISTRIBUTION WIDTH 24.9 % (10.0-14.5); WHITE BLOOD COUNT 6.6 10^3/uL (4.3-11.0)
[2019-05-05 06:37] LABS: ALANINE AMINOTRANSFERASE 45 U/L (0-55); ALBUMIN 3.2 GM/DL (3.2-4.5); ALKALINE PHOSPHATASE 484 U/L (40-136); BILIRUBIN,TOTAL 0.4 MG/DL (0.1-1.0); BUN/CREATININE RATIO 14; CARBON DIOXIDE 16 MMOL/L (21-32); CHLORIDE 111 MMOL/L (98-107); CREATININE SERUM 0.81 MG/DL (0.60-1.30); GFR ESTIMATED > 60; GLUCOSE 85 MG/DL (70-105); LIPASE 125 U/L (8-78); POTASSIUM 3.6 MMOL/L (3.6-5.0); SODIUM 139 MMOL/L (135-145); TOTAL PROTEIN 5.9 GM/DL (6.4-8.2)
[2019-05-05] MEDS ORDERED: predniSONE 5 MG TAB PO SCH (07:00)
--- NOTE | 2019-05-05 07:12 | Progress Note - Surgery ---
POOJA WIGGINS,MED STUDENT 05/05/19 0712: Subjective Date Seen by a Provider: May 05, 2019 Time Seen by a Provider: 07:01 Subjective/Events-last exam Patient seen and examined. She says that she is feeling better but still has some dull, constant abdominal pain/discomfort that she rates as 3/10. Patient says that she has a little nausea but has not vomited. She states that starting yesterday afternoon she started having diarrhea. Review of Systems General: No Chills; Malaise HEENT: No Dysphasia Pulmonary: No Dyspnea, No Cough Cardiovascular: No: Chest Pain, Palpitations Gastrointestinal: Nausea, Abdominal Pain (RUQ and epigastric area ), Diarrhea; No: Vomiting Genitourinary: No Dysuria, No Frequency, No Hematuria Neurological: No: Weakness, Numbness Objective Exam Vital Signs Date Time Temp Pulse Resp B/P (MAP) Pulse Ox O2 Delivery O2 Flow Rate FiO2 05/05/19 04:20 36.2 78 16 142/83 (102) 100 Room Air 05/05/19 00:15 36.0 83 16 144/82 (102) 97 Room Air 05/04/19 20:00 Room Air 05/04/19 19:30 36.4 79 20 134/67 (89) 99 Room Air 05/04/19 15:39 36.4 81 20 124/74 (91) 98 Room Air 05/04/19 12:00 36.6 80 16 119/56 (77) 100 Room Air 05/04/19 08:17 36.4 81 18 121/67 (85) 100 Room Air 05/04/19 08:00 Room Air I & O 05/05/19 07:00 Intake Total 1970 ml Output Total 1250 ml Balance 720 ml Capillary Refill : Less Than 3 Seconds General Appearance: No Apparent Distress, WD/WN, Chronically ill HEENT: PERRL/EOMI Respiratory: Chest Non Tender, Lungs Clear, Normal Breath Sounds, No Accessory Muscle Use, No Respiratory Distress Cardiovascular: Regular Rate, Rhythm, Normal Peripheral Pulses Peripheral Pulses: 2+ Dorsalis Pedis (R), 2+ Left Dors-Pedis (L), 2+ Radial Pulses (R), 2+ Radial Pulses (L) Gastrointestinal: soft, no organomegaly, no pulsatile mass, tenderness (Epigastric, RUQ) Extremity: Non Tender, No Calf Tenderness, No Pedal Edema Neurologic/Psychiatric: Alert, Oriented x3, Normal Mood/Affect Skin: Normal Color, Warm/Dry Lymphatic: No Adenopathy Results Lab Laboratory Tests 05/05/19 05:55: White Blood Count 6.6, Red Blood Count 3.45L, Hemoglobin 8.8L, Hematocrit 29L, Mean Corpuscular Volume 84, Mean Corpuscular Hemoglobin 26, Mean Corpuscular Hemoglobin Concent 31L, Red Cell Distribution Width 24.9H, Platelet Count 262, Mean Platelet Volume 9.8, Neutrophils (%) (Auto) 62, Lymphocytes (%) (Auto) 25, Monocytes (%) (Auto) 10, Eosinophils (%) (Auto) 2, Basophils (%) (Auto) 1, Neutrophils # (Auto) 4.1, Lymphocytes # (Auto) 1.7, Monocytes # (Auto) 0.7, Eosinophils # (Auto) 0.2, Basophils # (Auto) 0.0, Sodium Level 139, Potassium Level 3.6, Chloride Level 111H, Carbon Dioxide Level 16L, Anion Gap 12, Blood Urea Nitrogen 11, Creatinine 0.81, Estimat Glomerular Filtration Rate > 60, BUN/Creatinine Ratio 14, Glucose Level 85, Calcium Level 8.0L, Corrected Calcium 8.6, Total Bilirubin 0.4, Aspartate Amino Transf (AST/SGOT) 73H, Alanine Aminotransferase (ALT/SGPT) 45, Alkaline Phosphatase 484H, Total Protein 5.9L, Albumin 3.2, Lipase 125H Assessment/Plan Assessment/Plan Assessment/Plan pancreatitis anemia patient clear liquids slowly advance as tolerates amylase lipase trending down. has had cholecystectomy previously no surgical intervention will follow Anemia is improving, continue to monitor and prn pRBCs Clinical Quality Measures DVT/VTE Risk/Contraindication: Risk Factor Score Per Nursin RFS Level Per Nursing on Admit: 2=Moderate ABIMBOLA RICHARDS DO 05/05/191: Subjective Subjective/Events-last exam continues to feel better. tolerating diet. pain minimal. minimal nausea. some diarrhea. labs improving. wanting to go home. Objective Exam General Appearance: No Apparent Distress HEENT: PERRL/EOMI Neck: Supple Respiratory: Chest Non Tender, No Accessory Muscle Use, No Respiratory Distress Cardiovascular: Regular Rate, Rhythm Gastrointestinal: soft, tenderness (minimal epigastric) Neurologic/Psychiatric: Alert, Oriented x3, Normal Mood/Affect Skin: Normal Color, Warm/Dry Lymphatic: No Adenopathy Assessment/Plan Assessment/Plan Assessment/Plan pancreatitis anemia feeling better, advance diet as tolerates amylase lipase trending down. has had cholecystectomy previously no surgical intervention Anemia is improving likely home today Supervisory-Addendum Brief Verification & Attestation Participated in pt care: history, MDM, physical Personally performed: exam, history, MDM, supervision of care Care discussed with: Medical Student Procedures: n/a Results interpretation: Verified all documentation Verification and Attestation of Medical Student E/M Service A medical student performed and documented this service in my presence. I reviewed and verified all information documented by the medical student and made modifications to such information, when appropriate. I personally performed the physical exam and medical decision making. Abimbola iRchards, May 05, 2019,21:40 POOJA WIGGINS,MED STUDENT May 05, 2019 07:12 ABIMBOLA RICHARDS DO May 05, 2019 21:41
[2019-05-05 07:39] VITALS: BP 179/77
[2019-05-05] MEDS: TIMOLOL MALEATE 0.5% 5 ML (TIMOPTIC) BTL OU SCH (08:02)
[2019-05-05] MEDS: METOCLOPRAMIDE 10 MG (REGLAN) TAB PO SCH (08:02)
[2019-05-05] MEDS: SENNA W/DOCUSATE (SENOKOT S) TABLET PO SCH (08:03)
[2019-05-05] MEDS ORDERED: ATENOLOL 50 MG (TENORMIN) TAB PO SCH (09:00)
[2019-05-05] MEDS ORDERED: PANTOPRAZOLE 40 MG (PROTONIX) TAB PO SCH (09:00)
[2019-05-05] MEDS ORDERED: IRON SUCROSE 200 MG/10 ML (VENOFER) VIAL IV SCH (09:00)
[2019-05-05] MEDS ORDERED: LORATADINE (CLARITIN) 10 MG TAB PO SCH (09:00)
[2019-05-05] MEDS ORDERED: FOLIC ACID 1 MG TAB PO SCH (09:00)
[2019-05-05] MEDS ORDERED: POTA10TA36 PO (10:07)
--- NOTE | 2019-05-05 10:08 | Discharge Summary ---
Discharge Summary Hospital Course Was the Problem List Reviewed?: Yes Problems/Dx: (1) Acute pancreatitis Status: Acute (2) Chronic anemia Status: Acute (3) Nausea Status: Acute (4) Hyponatremia Status: Acute (5) Elevated alkaline phosphatase level Status: Acute Hospital Course Date of Admission: May 03, 2019 at 17:05 Admission Diagnosis : Family Physician/Provider: Kamila Garner Aprn Date of Discharge: 05/05/19 Discharge Diagnosis: Acute pancreatitis mild, chronic anemia, vasculitis Hospital Course: Hospital Course: Pt had an uneventful hospital course when she was admitted for slight elevation of lipase and abdominal pain and nausea and vomiting which had been going on for many weeks. Pt was given IV fluids, and Dr. Richards was consulted since she had cholecystectomy of gallbladder, Etiology was not assessed so elevated liver enzymes will be followed up as an outpatient. Hypokalemia resolved, Hydrochlorothiazide was held due to significant dehydra tion effects along with causing severe hypokalemia and a possible source of the pancreatitis. She received an iron infusion per Dr. Yarbrough, and was deemed stable for DC. Labs and Pending Lab Test: Laboratory Tests 05/05/19 05:55: White Blood Count 6.6, Red Blood Count 3.45L, Hemoglobin 8.8L, Hematocrit 29L, Mean Corpuscular Volume 84, Mean Corpuscular Hemoglobin 26, Mean Corpuscular Hemoglobin Concent 31L, Red Cell Distribution Width 24.9H, Platelet Count 262, Mean Platelet Volume 9.8, Neutrophils (%) (Auto) 62, Lymphocytes (%) (Auto) 25, Monocytes (%) (Auto) 10, Eosinophils (%) (Auto) 2, Basophils (%) (Auto) 1, Neutrophils # (Auto) 4.1, Lymphocytes # (Auto) 1.7, Monocytes # (Auto) 0.7, Eosinophils # (Auto) 0.2, Basophils # (Auto) 0.0, Sodium Level 139, Potassium Level 3.6, Chloride Level 111H, Carbon Dioxide Level 16L, Anion Gap 12, Blood Urea Nitrogen 11, Creatinine 0.81, Estimat Glomerular Filtration Rate > 60, BUN/Creatinine Ratio 14, Glucose Level 85, Calcium Level 8.0L, Corrected Calcium 8.6, Total Bilirubin 0.4, Aspartate Amino Transf (AST/SGOT) 73H, Alanine Aminotransferase (ALT/SGPT) 45, Alkaline Phosphatase 484H, Total Protein 5.9L, Albumin 3.2, Lipase 125H Home Meds Active Potassium Chloride 10 Meq Tab.er.prt 10 Meq PO DAILY Reported Zyrtec (Cetirizine HCl) 10 Mg Tablet 10 Mg PO HS PRN Refresh Tears (Carboxymethylcellulose Sodium) 15 Ml Drops 1 Drop OU BID Calcium 600 + Vit D 800 Tab (Calcium Carbonate/Vitamin D3) 1 Each Tablet 1 Tab PO DAILY Leflunomide 20 Mg Tablet 20 Mg PO HS Ondansetron HCl 4 Mg Tablet 4 Mg PO Q4H PRN Acetaminophen-Cod #3 Tablet (Acetaminophen with Codeine) 1 Each Tablet 1 Tab PO DAILY PRN Alendronate Sodium 70 Mg Tablet 70 Mg PO SA Prednisone 5 Mg Tablet 5 Mg PO DAILY Timolol Maleate 0.5% (Timolol Maleate) 5 Ml Drops 1 Drop OU BID Atenolol 50 Mg Tablet 50 Mg PO DAILY Ventolin Hfa (Albuterol Sulfate) 1 Puff Puff 2 Puff INH Q6H PRN 1 PUFF = 90 MCG Cyclobenzaprine HCl 10 Mg Tablet 10 Mg PO TID PRN Folic Acid 1 Mg Tablet 1 Mg PO DAILY Loratadine 10 Mg Tablet 10 Mg PO DAILY Losartan Potassium 100 Mg Tablet 100 Mg PO HS Meclizine HCl 12.5 Mg Tablet 12.5-25 Mg PO TID PRN TAKES 1 TO 2 (12.5MG) TABLETS Metoclopramide HCl 10 Mg Tablet 10 Mg PO QID Hydrochlorothiazide 50 Mg Tablet 50 Mg PO DAILY Pantoprazole Sodium 40 Mg Tablet.dr 40 Mg PO DAILY Assessment/Pt Instructions [facility] 1 week Discharge Planning: <30 minutes discharge planning Discharge Instructions Discharge Diet: Other Diet (CLD and advance slowly) Discharge Physical Examination Vital Signs Vital Signs Date Time Temp Pulse Resp B/P (MAP) Pulse Ox O2 Delivery O2 Flow Rate FiO2 05/05/19 08:00 98 Room Air 05/05/19 07:39 35.9 78 16 179/77 (111) General Appearance: No Apparent Distress, WD/WN, Chronically ill Respiratory: Lungs Clear Cardiovascular: Regular Rate, Rhythm Neurologic/Psychiatric: Alert, Oriented x3, No Motor/Sensory Deficits, Normal Mood/Affect Allergies: Coded Allergies: cephradine (Verified Allergy, Unknown, 04/15/19) simvastatin (Verified Allergy, Unknown, 04/15/19) Discharge Summary Date of Admission May 03, 2019 at 17:05 Date of Discharge Discharge Date: May 05, 2019 Admission Diagnosis Assessment: Acute pancreatitis Abdominal pain N/V Dehydration Hypokalemia Anemia of iron deficiency h/o vasculitis Plan: CLD USG Monitor lipase and labs Venofer infusion Jeane Bull appreciated Discharge Diagnosis Assessment: Acute pancreatitis Abdominal pain N/V Dehydration Hypokalemia Anemia of iron deficiency h/o vasculitis Plan: CLD USG Monitor lipase and labs Venofer infusion Jeane Bull appreciated (1) Acute pancreatitis Status: Acute (2) Chronic anemia Status: Acute (3) Nausea Status: Acute (4) Hyponatremia Status: Acute (5) Elevated alkaline phosphatase level Status: Acute Clinical Quality Measures DVT/VTE Risk/Contraindication: Risk Factor Score Per Nursin RFS Level Per Nursing on Admit: 2=Moderate WESLY HDZ DO May 05, 2019 10:08
[2019-05-05 13:21] VITALS: BP 179/77
== END 2019-05-05 13:28 | disposition home or self-care (01) | DRG 440 ==
LOC: EDUNIT# 13:00 → ER FS 13:01 → 4TH 17:05
PROVIDERS: ADMIT Internal Medicine; ATTEND Internal Medicine
DX: K85.90 Acute pancreatitis without necrosis or infection, unspecified (principal); E87.6 Hypokalemia; E78.00 Pure hypercholesterolemia, unspecified; J45.909 Unspecified asthma, uncomplicated; I10 Essential (primary) hypertension; K21.0 Gastro-esophageal reflux disease with esophagitis; K58.9 Irritable bowel syndrome, unspecified; M19.90 Unspecified osteoarthritis, unspecified site; H40.9 Unspecified glaucoma; M06.9 Rheumatoid arthritis, unspecified; R13.10 Dysphagia, unspecified; E86.0 Dehydration; D50.9 Iron deficiency anemia, unspecified; I77.6 Arteritis, unspecified; Z90.710 Acquired absence of both cervix and uterus
CPT/HCPCS: 36415; 80053; 82150; 83690; 85025; 93005; 96361; 96374

== ENCOUNTER 2019-06-02 15:02 | Outpatient (RCR) | payer BC ==
[2019-03-25 16:15] LABS: ABSOLUTE RETIC # 72 10e9/L (24-90); BASOPHILS # (AUTO) 0.1 10^3/uL (0.0-0.1); BASOPHILS % (AUTO) 1 % (0-10); EOSINOPHILS # (AUTO) 0.1 10^3/uL (0.0-0.3); EOSINOPHILS % (AUTO) 1 % (0-10); HEMATOCRIT 29 % (35-52); HEMOGLOBIN 8.5 G/DL (11.5-16.0); LYMPHOCYTES # (AUTO) 1.2 X 10^3 (1.0-4.0); LYMPHOCYTES % (AUTO) 12 % (12-44); MEAN CORPUSCULAR HEMOGLOBIN 25 PG (25-34); MEAN CORPUSCULAR HGB CONC 30 G/DL (32-36); MEAN CORPUSCULAR VOLUME 83 FL (80-99); MEAN PLATELET VOLUME 10.5 FL (7.4-10.4); MONOCYTES # (AUTO) 0.9 X 10^3 (0.0-1.0); MONOCYTES % (AUTO) 9 % (0-12); NEUTROPHILS % (AUTO) 79 % (42-75); PLATELET COUNT 264 10^3/uL (130-400); RED CELL DISTRIBUTION WIDTH 18.3 % (10.0-14.5); RETICULOCYTE % 2.09 % (0.50-2.40); WHITE BLOOD COUNT 10.2 10^3/uL (4.3-11.0)
[2019-03-25 16:56] LABS: ANISOCYTOSIS MODERATE; BAND NEUTROPHILS 0 %; BASOPHILS % (MANUAL) 0 %; EOSINOPHILS % (MANUAL) 0 %; LYMPHOCYTES % (MANUAL) 7 %; MONOCYTES % (MANUAL) 5 %; NEUTROPHILS % (MANUAL) 88 %
[2019-04-04 06:49] LABS: IMMUNOFIX PATH REPORT NUMBER Complete (Complete)
[~2019-06-02 15:02] MED LIST changes: +ACET1TAB43 PO; +ALEN70TA5 PO; +CALC-901 PO; +CARB15DR OU; +CETI10TA21 PO; +FERRIC CARBOXYMALTOSE (CANCER) 750 MG in NS (IVPB) CANCER CENTER 250 ML IV SCH; +LEFL20TA18 PO; +MECL-172 PO; -MECL12.579 PO; +ONDA-105 PO; +POTA10TA36 PO
== END 2019-06-23 | disposition home or self-care (01) ==
LOC: ONC 15:02
PROVIDERS: ATTEND Internal Medicine Hematology & Oncology
DX: D50.9 Iron deficiency anemia, unspecified (principal); M19.90 Unspecified osteoarthritis, unspecified site; E78.00 Pure hypercholesterolemia, unspecified; R53.83 Other fatigue; Z90.710 Acquired absence of both cervix and uterus; Z90.49 Acquired absence of other specified parts of digestive tract; Z90.89 Acquired absence of other organs
CPT/HCPCS: 82607; 82728; 82746; 83540; 84155; 84165; 84443; 85007; 85027; 85045; 86334; 96365; 99213

== ENCOUNTER → 2019-09-01 | Outpatient (CLI) | payer BC ==
[~2019-09-01] MED LIST changes: -FERRIC CARBOXYMALTOSE (CANCER) 750 MG in NS (IVPB) CANCER CENTER 250 ML IV SCH
[2019-09-01 14:07] LABS: ALKALINE PHOSPHATASE 204 U/L (40-136); BILIRUBIN,TOTAL 0.6 MG/DL (0.1-1.0); BUN/CREATININE RATIO 32; CARBON DIOXIDE 24 MMOL/L (21-32); CHLORIDE 99 MMOL/L (98-107); CREATININE SERUM 0.68 MG/DL (0.60-1.30); GFR ESTIMATED > 60; GLUCOSE 140 MG/DL (70-105); POTASSIUM 4.2 MMOL/L (3.6-5.0); SODIUM 139 MMOL/L (135-145)
[2019-09-01 14:08] LABS: ALANINE AMINOTRANSFERASE 38 U/L (0-55); ALBUMIN 4.1 GM/DL (3.2-4.5); TOTAL PROTEIN 6.9 GM/DL (6.4-8.2); WHITE BLOOD COUNT 7.7 10^3/uL (4.3-11.0)
[2019-09-01 14:09] LABS: BASOPHILS # (AUTO) 0.1 10^3/uL (0.0-0.1); BASOPHILS % (AUTO) 1 % (0-10); EOSINOPHILS # (AUTO) 0.1 10^3/uL (0.0-0.3); EOSINOPHILS % (AUTO) 1 % (0-10); HEMATOCRIT 33 % (35-52); HEMOGLOBIN 10.3 G/DL (11.5-16.0); LYMPHOCYTES # (AUTO) 0.6 X 10^3 (1.0-4.0); LYMPHOCYTES % (AUTO) 8 % (12-44); MEAN CORPUSCULAR HEMOGLOBIN 29 PG (25-34); MEAN CORPUSCULAR HGB CONC 31 G/DL (32-36); MEAN CORPUSCULAR VOLUME 94 FL (80-99); MEAN PLATELET VOLUME 11.3 FL (7.4-10.4); MONOCYTES # (AUTO) 0.6 X 10^3 (0.0-1.0); MONOCYTES % (AUTO) 8 % (0-12); NEUTROPHILS # (AUTO) 6.3 X 10^3 (1.8-7.8); NEUTROPHILS % (AUTO) 82 % (42-75); PLATELET COUNT 186 10^3/uL (130-400); RED CELL DISTRIBUTION WIDTH 15.4 % (10.0-14.5)
== END ==
LOC: LAB FS 10:27
PROVIDERS: ATTEND Internal Medicine Rheumatology
DX: Z51.81 Encounter for therapeutic drug level monitoring (principal); Z79.899 Other long term (current) drug therapy
CPT/HCPCS: 36415; 80053; 85025

== ENCOUNTER → 2019-09-01 | Outpatient (CLI) | payer BC ==
[2019-09-01 13:03] LABS: BILIRUBIN,TOTAL 0.5 MG/DL (0.1-1.0); BUN/CREATININE RATIO 33; CALCIUM 10.1 MG/DL (8.5-10.1); CARBON DIOXIDE 24 MMOL/L (21-32); CHLORIDE 100 MMOL/L (98-107); CREATININE SERUM 0.66 MG/DL (0.60-1.30); GFR ESTIMATED > 60; GLUCOSE 134 MG/DL (70-105); POTASSIUM 4.2 MMOL/L (3.6-5.0); SODIUM 139 MMOL/L (135-145)
[2019-09-01 13:04] LABS: ALANINE AMINOTRANSFERASE 38 U/L (0-55); ALBUMIN 4.1 GM/DL (3.2-4.5); ALKALINE PHOSPHATASE 204 U/L (40-136); TOTAL PROTEIN 6.8 GM/DL (6.4-8.2); WHITE BLOOD COUNT 7.7 10^3/uL (4.3-11.0)
[2019-09-01 13:05] LABS: BASOPHILS % (AUTO) 1 % (0-10); EOSINOPHILS % (AUTO) 1 % (0-10); HEMATOCRIT 33 % (35-52); HEMOGLOBIN 10.3 G/DL (11.5-16.0); LYMPHOCYTES % (AUTO) 8 % (12-44); MEAN CORPUSCULAR HEMOGLOBIN 29 PG (25-34); MEAN CORPUSCULAR HGB CONC 31 G/DL (32-36); MEAN CORPUSCULAR VOLUME 93 FL (80-99); MEAN PLATELET VOLUME 11.2 FL (7.4-10.4); MONOCYTES % (AUTO) 7 % (0-12); NEUTROPHILS % (AUTO) 83 % (42-75); PLATELET COUNT 183 10^3/uL (130-400); RED CELL DISTRIBUTION WIDTH 15.5 % (10.0-14.5)
[2019-09-01 13:06] LABS: BASOPHILS # (AUTO) 0.1 10^3/uL (0.0-0.1); EOSINOPHILS # (AUTO) 0.1 10^3/uL (0.0-0.3); LYMPHOCYTES # (AUTO) 0.6 X 10^3 (1.0-4.0); MONOCYTES # (AUTO) 0.5 X 10^3 (0.0-1.0); NEUTROPHILS # (AUTO) 6.4 X 10^3 (1.8-7.8)
== END ==
LOC: LAB FS 10:17
PROVIDERS: ATTEND Internal Medicine Hematology & Oncology
DX: D64.9 Anemia, unspecified (principal)
CPT/HCPCS: 36415; 80053; 82668; 82728; 85025

== ENCOUNTER 2019-12-06 14:44 | Outpatient (RCR) | payer BC ==
[~2019-12-06 14:44] MED LIST changes: -CETI10TA21 PO; +CETI10TA49 PO; -PANT40TA3 PO; +PANT40TA52 PO
== END 2020-01-13 08:32 | disposition home or self-care (01) ==
LOC: ONC 14:44
PROVIDERS: ATTEND Internal Medicine Hematology & Oncology
DX: D64.9 Anemia, unspecified (principal); M19.90 Unspecified osteoarthritis, unspecified site; E78.00 Pure hypercholesterolemia, unspecified; I10 Essential (primary) hypertension; I77.6 Arteritis, unspecified; K76.0 Fatty (change of) liver, not elsewhere classified; Z90.710 Acquired absence of both cervix and uterus; Z90.49 Acquired absence of other specified parts of digestive tract; Z90.89 Acquired absence of other organs
CPT/HCPCS: 99213

== ENCOUNTER → 2020-06-20 | Outpatient (CLI) | payer BC ==
[~2020-06-20] MED LIST changes: -ALEN70TA5 PO; +ALEN70TA80 PO; -FOLI1TAB24 PO; +FOLI1TAB33 PO; -HYDR50TA3 PO; +HYDR50TA6 PO; -MECL-172 PO; +MECL-215 PO; -METO10TA3 PO; +MTC10T PO
[2020-06-20 09:12] LABS: BASOPHILS % (AUTO) 1 % (0-10); EOSINOPHILS % (AUTO) 2 % (0-10); HEMATOCRIT 38 % (35-52); HEMOGLOBIN 11.9 G/DL (11.5-16.0); LYMPHOCYTES % (AUTO) 13 % (12-44); MEAN CORPUSCULAR HEMOGLOBIN 29 PG (25-34); MEAN CORPUSCULAR HGB CONC 32 G/DL (32-36); MEAN CORPUSCULAR VOLUME 92 FL (80-99); MEAN PLATELET VOLUME 10.7 FL (7.4-10.4); MONOCYTES % (AUTO) 8 % (0-12); NEUTROPHILS % (AUTO) 75 % (42-75); PLATELET COUNT 210 10^3/uL (130-400)
[2020-06-20 09:13] LABS: BASOPHILS # (AUTO) 0.1 10^3/uL (0.0-0.1); EOSINOPHILS # (AUTO) 0.2 10^3/uL (0.0-0.3); LYMPHOCYTES # (AUTO) 1.4 X 10^3 (1.0-4.0); MONOCYTES # (AUTO) 0.9 X 10^3 (0.0-1.0); NEUTROPHILS # (AUTO) 8.2 X 10^3 (1.8-7.8)
[2020-06-20 09:14] LABS: CHLORIDE 101 MMOL/L (98-107); SODIUM 139 MMOL/L (135-145)
[2020-06-20 09:15] LABS: ALANINE AMINOTRANSFERASE 39 U/L (0-55); ALKALINE PHOSPHATASE 196 U/L (40-136); BILIRUBIN,TOTAL 0.4 MG/DL (0.1-1.0); BUN/CREATININE RATIO 39; CALCIUM 10.5 MG/DL (8.5-10.1); CARBON DIOXIDE 23 MMOL/L (21-32); CREATININE SERUM 0.84 MG/DL (0.60-1.30); GFR ESTIMATED > 60; GLUCOSE 138 MG/DL (70-105); TOTAL PROTEIN 7.1 GM/DL (6.4-8.2)
== END ==
LOC: LAB FS 07:12
PROVIDERS: ATTEND Internal Medicine Hematology & Oncology
DX: D64.9 Anemia, unspecified (principal)
CPT/HCPCS: 36415; 80053; 82728; 85025

== ENCOUNTER → 2020-06-20 | Outpatient (CLI) | payer BC | LOC: LAB FS 07:22 | PROVIDERS: ATTEND Internal Medicine Rheumatology | DX: Z51.81 Encounter for therapeutic drug level monitoring (principal) | CPT/HCPCS: 36415; 85652; 86141 ==

== ENCOUNTER → 2020-06-28 | Outpatient (CLI) | payer BC | LOC: ONC 14:45 | PROVIDERS: ATTEND Internal Medicine Hematology & Oncology | DX: D50.9 Iron deficiency anemia, unspecified (principal); E83.52 Hypercalcemia; I10 Essential (primary) hypertension | CPT/HCPCS: 99213 ==

== ENCOUNTER → 2021-01-03 | Outpatient (CLI) | payer BC | LOC: ONC 14:57 | PROVIDERS: ATTEND Internal Medicine Hematology & Oncology | DX: D50.9 Iron deficiency anemia, unspecified (principal); I10 Essential (primary) hypertension; Z79.899 Other long term (current) drug therapy | CPT/HCPCS: 99213 ==

== ENCOUNTER → 2021-01-11 | Outpatient (CLI) | payer BC | LOC: LAB FS 12:17 | PROVIDERS: ATTEND Internal Medicine Hematology & Oncology | DX: D64.9 Anemia, unspecified (principal) | CPT/HCPCS: 82274 ==

== ENCOUNTER → 2021-03-28 | Outpatient (CLI) | payer BC ==
[~2021-03-28] MED LIST changes: +CYCL10TA25 PO; -CYCL10TA9 PO; -LEFL10TA16 PO; +LEFL10TA20 PO; -POTA10TA36 PO; +POTA10TA37 PO
== END ==
LOC: ONC 14:16
PROVIDERS: ATTEND Internal Medicine Hematology & Oncology
DX: D50.9 Iron deficiency anemia, unspecified (principal); E83.52 Hypercalcemia; I10 Essential (primary) hypertension; E66.9 Obesity, unspecified
CPT/HCPCS: 99213

== ENCOUNTER 2021-04-11 12:32 | Outpatient (RCR) | payer BC ==
[~2021-04-11 12:32] MED LIST changes: +FERRIC CARBOXYMALTOSE (CANCER) 750 MG in NS (IVPB) CANCER CENTER 250 ML IV SCH
== END 2021-04-19 | disposition home or self-care (01) ==
LOC: ONC 12:32
PROVIDERS: ATTEND Internal Medicine Hematology & Oncology
DX: D50.9 Iron deficiency anemia, unspecified (principal); E83.52 Hypercalcemia; I10 Essential (primary) hypertension; E66.9 Obesity, unspecified; R94.5 Abnormal results of liver function studies
CPT/HCPCS: 96365

== ENCOUNTER 2021-07-19 14:41 | Outpatient (RCR) | payer BC ==
[~2021-07-19 14:41] MED LIST changes: +ACET-11 PO; -ACET1TAB43 PO; -FERRIC CARBOXYMALTOSE (CANCER) 750 MG in NS (IVPB) CANCER CENTER 250 ML IV SCH
== END 2021-08-17 | disposition home or self-care (01) ==
LOC: ONC 14:41
PROVIDERS: ATTEND Internal Medicine Hematology & Oncology
DX: D50.9 Iron deficiency anemia, unspecified (principal); E83.52 Hypercalcemia; I10 Essential (primary) hypertension; E66.9 Obesity, unspecified; R94.5 Abnormal results of liver function studies
CPT/HCPCS: 99213

== ENCOUNTER 2022-05-07 13:59 | Outpatient (RCR) | payer BC ==
[~2022-05-07 13:59] MED LIST changes: +POTA-177 PO; -POTA10CA43 PO; +POTA10CA44 PO; -POTA10TA37 PO
[2022-05-07 14:31] LABS: BASOPHILS # (AUTO) 0.1 10^3/uL (0.0-0.1); BASOPHILS % (AUTO) 1 % (0-10); EOSINOPHILS # (AUTO) 0.2 10^3/uL (0.0-0.3); EOSINOPHILS % (AUTO) 2 % (0-10); HEMATOCRIT 34 % (35-52); HEMOGLOBIN 10.1 g/dL (11.5-16.0); LYMPHOCYTES # (AUTO) 0.8 10^3/uL (1.0-4.0); LYMPHOCYTES % (AUTO) 9 % (12-44); MEAN CORPUSCULAR HEMOGLOBIN 27 pg (25-34); MEAN CORPUSCULAR HGB CONC 30 g/dL (32-36); MEAN CORPUSCULAR VOLUME 92 fL (80-99); MEAN PLATELET VOLUME 11.7 fL (9.0-12.2); MONOCYTES # (AUTO) 0.9 10^3/uL (0.0-1.0); MONOCYTES % (AUTO) 10 % (0-12); NEUTROPHILS % (AUTO) 76 % (42-75); PLATELET COUNT 184 10^3/uL (130-400); WHITE BLOOD COUNT 9.3 10^3/uL (4.3-11.0)
[2022-05-07 14:57] LABS: ALBUMIN 3.7 GM/DL (3.2-4.5); BILIRUBIN,TOTAL 0.6 MG/DL (0.1-1.0); CALCIUM 9.7 MG/DL (8.5-10.1); POTASSIUM 4.4 MMOL/L (3.6-5.0); TOTAL PROTEIN 6.5 GM/DL (6.4-8.2)
== END 2022-05-20 | disposition home or self-care (01) ==
LOC: ONC 13:59
PROVIDERS: ATTEND Internal Medicine Hematology & Oncology
DX: D50.9 Iron deficiency anemia, unspecified (principal); E83.52 Hypercalcemia; I10 Essential (primary) hypertension; E66.9 Obesity, unspecified; R94.5 Abnormal results of liver function studies
CPT/HCPCS: 80053; 83540; 83550; 85025; G0463; 99213

== ENCOUNTER 2022-05-29 14:11 | Outpatient (RCR) | payer BC | END 2022-06-17 | disposition home or self-care (01) | LOC: ONC 14:11 | PROVIDERS: ATTEND Internal Medicine Hematology & Oncology | DX: D50.9 Iron deficiency anemia, unspecified (principal); E83.52 Hypercalcemia; I10 Essential (primary) hypertension; E66.9 Obesity, unspecified; R94.5 Abnormal results of liver function studies ==

== ENCOUNTER 2022-09-03 08:18 | Outpatient (RCR) | payer BC ==
[~2022-09-03 08:18] MED LIST changes: +FERRIC CARBOXYMALTOSE INJ 750 MG in NS (IVPB) 250 ML IV SCH; +TIMO5DRO16 OU; -TIMO5DRO5 OU
[2022-09-14] MEDS ORDERED: KETO10TA PO (08:34)
== END 2022-09-17 | disposition home or self-care (01) ==
LOC: ONC 08:18
PROVIDERS: ATTEND Internal Medicine Hematology & Oncology
DX: D50.9 Iron deficiency anemia, unspecified (principal); I10 Essential (primary) hypertension; E66.9 Obesity, unspecified; R94.5 Abnormal results of liver function studies
CPT/HCPCS: 36415; 96365

== ENCOUNTER 2022-09-14 08:14 | Emergency (ER) | payer BC ==
[~2022-09-14 08:14] MED LIST changes: -FERRIC CARBOXYMALTOSE INJ 750 MG in NS (IVPB) 250 ML IV SCH
[2022-09-14] MEDS ORDERED: KETOROLAC 15 MG/ML VIAL IM ONE (08:30)
[2022-09-14] MEDS ORDERED: KETO10TA PO (08:34)
--- NOTE | 2022-09-14 08:35 | ED Lower Extremity ---
General Chief Complaint: Lower Extremity Stated Complaint: LT LEG PAIN Source: patient, family Exam Limitations: no limitations History of Present Illness Date Seen by Provider: September 14, 2022 Time Seen by Provider: 08:25 Initial Comments 56-year-old female presents to the emergency department today for left thigh pain. She has been here chronically and was recently switched to duloxetine for "arthritis." She states this is working pretty well. She is also using Flexeril which usually helps her pretty well. She had a fall on Thursday per her report. She states since then she has had increased soft tissue tenderness in her left thigh. She has no bony tenderness whatsoever and describes it as squeezing and cramping sensation in her left thigh. Again she has had these similar pains for several years however it is worse after her fall. She denies any redness fevers or chills. She is able to bear weight but has some significant pain, especially with the areas "tighten up." No weakness numbness or tingling. All other systems reviewed and negative except documented per HPI. Voice recognition software was used to help create this chart Allergies and Home Medications Allergies Coded Allergies: cephradine (Verified Allergy, Unknown, 04/15/19) simvastatin (Verified Allergy, Unknown, 04/15/19) Patient Home Medication List Home Medication List Reviewed: Yes Acetaminophen with Codeine (Acetaminophen-Cod #3 Tablet) 1 Each Tablet, 1 TAB PO DAILY PRN for TENSION HEADACHE, (Reported) Entered as Reported by: KATJA ECHOLS on 05/04/19928 Albuterol Sulfate (Ventolin Hfa) 1 Puff Puff, 2 PUFF INH Q6H PRN for SHORTNESS OF BREATH, (Reported) Entered as Reported by: ASMITA ENNIS on 04/26/191641 Alendronate Sodium (Alendronate Sodium) 70 Mg Tablet, 70 MG PO Sa, (Reported) Entered as Reported by: KATJA ECHOLS on 05/04/19928 Atenolol (Atenolol) 50 Mg Tablet, 50 MG PO DAILY, (Reported) Entered as Reported by: ASMITA ENNIS on 04/26/191641 Calcium Carbonate/Vitamin D3 (Calcium 600 + Vit D 800 Tab) 1 Each Tablet, 1 TAB PO DAILY, (Reported) Entered as Reported by: KATJA ECHOLS on 05/04/19928 Carboxymethylcellulose Sodium (Refresh Tears) 15 Ml Drops, 1 DROP OU BID, (Reported) Entered as Reported by: KATJA ECHOLS on 05/04/19928 Cetirizine HCl (Zyrtec) 10 Mg Tablet, 10 MG PO HS PRN for ALLERGIES, (Reported) Entered as Reported by: KATJA ECHOLS on 05/04/19 09 Cyclobenzaprine HCl (Cyclobenzaprine HCl) 10 Mg Tablet, 10 MG PO TID PRN for MUSCLE SPASMS, (Reported) Entered as Reported by: ASMITA ENNIS on 04/26/191641 Folic Acid (Folic Acid) 1 Mg Tablet, 1 MG PO DAILY, (Reported) Entered as Reported by: ASMITA ENNIS on 04/26/191641 Leflunomide (Leflunomide) 20 Mg Tablet, 20 MG PO HS, (Reported) Entered as Reported by: KATJA ECHOLS on 05/04/19928 Loratadine (Loratadine) 10 Mg Tablet, 10 MG PO DAILY, (Reported) Entered as Reported by: ASMITA ENNIS on 04/26/19 164 Losartan Potassium (Losartan Potassium) 100 Mg Tablet, 100 MG PO HS, (Reported) Entered as Reported by: ASMITA ENNIS on 04/26/19 164 Meclizine HCl (Meclizine HCl) 12.5 Mg Tablet, 12.5-25 MG PO TID PRN for DIZZINESS, (Reported) Entered as Reported by: ASMITA ENNIS on 04/26/191641 Metoclopramide HCl (Metoclopramide HCl) 10 Mg Tablet, 10 MG PO QID, (Reported) Entered as Reported by: ASMITA ENNIS on 04/26/19 164 Ondansetron HCl (Ondansetron HCl) 4 Mg Tablet, 4 MG PO Q4H PRN for NAUSEA/VOMITING-1ST LINE, (Reported) Entered as Reported by: KATJA ECHOLS on 05/04/19928 Pantoprazole Sodium (Pantoprazole Sodium) 40 Mg Tablet.dr, 40 MG PO DAILY, (Reported) Entered as Reported by: ASMITA ENNIS on 04/26/19 1417 Potassium Chloride (Potassium Chloride) 10 Meq Tab.er.prt, 10 MEQ PO DAILY Prescribed by: WESLY HDZ on 05/05/19 1007 Prednisone (Prednisone) 5 Mg Tablet, 5 MG PO DAILY, (Reported) Entered as Reported by: ASMITA ENNIS on 04/26/19 1642 Timolol Maleate (Timolol Maleate 0.5%) 5 Ml Drops, 1 DROP OU BID, (Reported) Entered as Reported by: ASMITA ENNIS on 04/26/19 1642 Review of Systems Constitutional: see HPI Past Dsyibyr-Ldrdzj-Diuwmd Hx Patient Social History Tobacco Use?: No Use of E-Cig and/or Vaping dev: No Substance use?: No Alcohol Use?: No Seasonal Allergies Seasonal Allergies: Yes Past Medical History Surgeries: Yes Appendectomy, Gallbladder, Hysterectomy, Oophorectomy Respiratory: Yes Asthma Cardiac: Yes (VASCULITIS) High Cholesterol, Hypertension Neurological: No Genitourinary: No Gastrointestinal: Yes Gastroesophageal Reflux, Esophagitis, Irritable Bowel Musculoskeletal: Yes Arthritis, Rheumatoid Arthritis Endocrine: Yes (NONALCOHOLIC LIVER DISEASE) HEENT: Yes Dysphagia, Glaucoma Cancer: No Psychosocial: No Integumentary: No Blood Disorders: Yes Family Medical History No Pertinent Family Hx Physical Exam Vital Signs Capillary Refill : Height, Weight, BMI Height: '" Weight: lbs. oz. kg; 33.81 BMI Method: General Appearance: WD/WN, no apparent distress Neck: non-tender, full range of motion, supple Hips: bilateral hip non-tender, bilateral hip normal inspection, bilateral hip normal range of motion Legs: right leg non-tender, right leg normal inspection, right leg normal range of motion; left leg other (Tender to palpation left medial thigh. No deformity, swelling or redness. Neurovascular sensory intact. No bony tenderness, appears to be all in soft tissue) Knees: bilateral knee non-tender, bilateral knee normal inspection, bilateral knee normal range of motion Ankles: bilateral ankle non-tender, bilateral ankle normal inspection, bilateral ankle normal range of motion Feet: bilateral foot non-tender, bilateral foot normal inspection, bilateral foot normal range of motion Neurologic/Psychiatric: alert, oriented x 3 Skin: normal color, warm/dry Departure Communication (Admissions) Patient is hemodynamically stable. No evidence for traumatic injury at this time. No stigmata of DVT, arterial occlusion. Good pulses distally, neurovascular motor and sensory intact. No bony tenderness whatsoever. This seems to be an exacerbation of her chronic soft tissue issues in the area. We will go ahead and treat her conservatively with Toradol as needed. Given IM dose here and prescribed p.o. to go home. Impression Primary Impression: Pain in soft tissues of limb Disposition: HOME, SELF-CARE Condition: Stable Departure-Patient Inst. Referrals: SEGUNDO DINERO APRN (PCP) Primary Care Physician [facility] (Family) Primary Care Physician Patient Instructions: Leg Muscle Strain ED Add. Discharge Instructions: Take Toradol as needed up to 3 times a day for pain. Do not take this with other anti-inflammatory medicine such as Motrin Aleve or aspirin. You may use Tylenol in addition to this. Continue to take Flexeril as needed. Return to the emergency department if your symptoms change in any way concerning to you. Follow-up with your primary doctor for any nonemergent needs. All discharge instructions reviewed with patient and/or family. Voiced understanding. Scripts Ketorolac Tromethamine (Ketorolac Tromethamine) 10 Mg Tablet 10 MG PO TID for Pain for 3 Days, #9 TAB Prov: CHILO MOBLEY DO 09/14/22 CHILO MOBLEY DO September 14, 2022 08:35
[2022-09-14 08:40] VITALS: BP 133/66
== END 2022-09-14 08:40 | disposition home or self-care (01) ==
LOC: EDUNIT# 08:14 → ER FS 08:15
DX: M79.652 Pain in left thigh (principal)
CPT/HCPCS: 99284

== ENCOUNTER 2022-10-23 13:19 | Outpatient (RCR) | payer BC ==
[~2022-10-23 13:19] MED LIST changes: +KETO10TA PO; -LOSA100T57 PO; +LOSA100T58 PO; -POTA10CA44 PO; +POTA10CA84 PO
== END 2022-11-17 | disposition home or self-care (01) ==
LOC: ONC 13:19
PROVIDERS: ATTEND Internal Medicine Hematology & Oncology
DX: D50.9 Iron deficiency anemia, unspecified (principal); I10 Essential (primary) hypertension; E66.9 Obesity, unspecified; R94.5 Abnormal results of liver function studies

== ENCOUNTER 2022-11-21 15:33 | Emergency (ER) | payer BC ==
[~2022-11-21] VITALS: Ht 163 cm; Wt 91.0 kg
[2022-11-21] MEDS ORDERED: NS IV 1000 ML 1,000 ML IV STA ×2 (15:53→16:46)
--- NOTE | 2022-11-21 16:01 | ED Abdominal Pain ---
General Chief Complaint: Abdominal/GI Problems Stated Complaint: IRR LAB RESULTS/ABD PAIN Nursing Triage Note: pt states she has had n/v/d for about 2 and a half weeks. 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 Symptoms started fairly acutely 2 and half weeks ago. She was prescribed Zofran and meclizine with some improvement until today with she had 3-4 episodes of vomiting and diarrhea. She been reporting some lower right-sided abdominal pain and epigastric pain with acid reflux. She did see her primary care physician at [facility] had some lab work drawn and was called today to come to the ED concern for acute pancreatitis. History of pancreatitis in 2019. She was admitted. She has a history of cholecystectomy, appendectomy, hysterectomy. She states she is urinating but feels dehydrated. She did fall Thursday secondary to weakness and fatigue from vomiting. She states her blood pressure yesterday was in the 80s. She reports clear liquid for the past 2 weeks. she was placed on Bactrim a few weeks ago for a wound to her buttock which has improved. She does have a wound to her left leg was started on doxycycline on Thursday. She denies of any odor, blood or mucousy stools. She denies any fever, chills, chest pain, shortness of breath. Allergies and Home Medications Allergies Coded Allergies: cephradine (Verified Allergy, Unknown, 04/15/19) simvastatin (Verified Allergy, Unknown, 04/15/19) Patient Home Medication List Home Medication List Reviewed: Yes Acetaminophen with Codeine (Acetaminophen-Cod #3 Tablet) 1 Each Tablet, 1 TAB PO DAILY PRN for TENSION HEADACHE, (Reported) Entered as Reported by: KATJA ECHOLS on 05/04/19 0929 Albuterol Sulfate (Ventolin Hfa) 1 Puff Puff, 2 PUFF INH Q6H PRN for SHORTNESS OF BREATH, (Reported) Entered as Reported by: ASMITA ENNIS on 04/26/19 1642 Alendronate Sodium (Alendronate Sodium) 70 Mg Tablet, 70 MG PO Sa, (Reported) Entered as Reported by: KATJA ECHOLS on 05/04/19 09 Atenolol (Atenolol) 50 Mg Tablet, 50 MG PO DAILY, (Reported) Entered as Reported by: ASMITA ENNIS on 04/26/19 164 Calcium Carbonate/Vitamin D3 (Calcium 600 + Vit D 800 Tab) 1 Each Tablet, 1 TAB PO DAILY, (Reported) Entered as Reported by: KATJA ECHOLS on 05/04/19928 Carboxymethylcellulose Sodium (Refresh Tears) 15 Ml Drops, 1 DROP OU BID, (Reported) Entered as Reported by: KATJA ECHOLS on 05/04/19928 Cephalexin (Cephalexin) 250 Mg/5 Ml Susp.recon, 500 MG PO BID Prescribed by: YAHIR FOWLER on 11/21/22 1838 Cetirizine HCl (Zyrtec) 10 Mg Tablet, 10 MG PO HS PRN for ALLERGIES, (Reported) Entered as Reported by: KATJA ECHOLS on 05/04/19 09 Cyclobenzaprine HCl (Cyclobenzaprine HCl) 10 Mg Tablet, 10 MG PO TID PRN for MUSCLE SPASMS, (Reported) Entered as Reported by: ASMITA ENNIS on 04/26/191641 Folic Acid (Folic Acid) 1 Mg Tablet, 1 MG PO DAILY, (Reported) Entered as Reported by: ASMITA ENNIS on 04/26/19 164 Ketorolac Tromethamine (Ketorolac Tromethamine) 10 Mg Tablet, 10 MG PO TID Prescribed by: CHILO MOBLEY MD on 09/14/22 0834 Leflunomide (Leflunomide) 20 Mg Tablet, 20 MG PO HS, (Reported) Entered as Reported by: KATJA ECHOLS on 05/04/19 09 Loratadine (Loratadine) 10 Mg Tablet, 10 MG PO DAILY, (Reported) Entered as Reported by: ASMITA ENNIS on 04/26/19 164 Losartan Potassium (Losartan Potassium) 100 Mg Tablet, 100 MG PO HS, (Reported) Entered as Reported by: ASMITA ENNIS on 04/26/19 164 Meclizine HCl (Meclizine HCl) 12.5 Mg Tablet, 12.5-25 MG PO TID PRN for DIZZINESS, (Reported) Entered as Reported by: ASMITA ENNIS on 04/26/19 164 Metoclopramide HCl (Metoclopramide HCl) 10 Mg Tablet, 10 MG PO QID, (Reported) Entered as Reported by: ASIMTA ENNIS on 04/26/19 164 Ondansetron HCl (Ondansetron HCl) 4 Mg Tablet, 4 MG PO Q4H PRN for NAUSEA /VOMITING-1ST LINE, (Reported) Entered as Reported by: KATJA ECHOLS on 05/04/19 0929 Pantoprazole Sodium (Pantoprazole Sodium) 40 Mg Tablet.dr, 40 MG PO DAILY, (Reported) Entered as Reported by: ASMITA ENNIS on 04/26/19 1417 Potassium Chloride (Potassium Chloride) 10 Meq Tab.er.prt, 10 MEQ PO DAILY Prescribed by: WESLY HDZ on 05/05/19 1007 Prednisone (Prednisone) 5 Mg Tablet, 5 MG PO DAILY, (Reported) Entered as Reported by: ASMITA ENNIS on 04/26/19 164 Timolol Maleate (Timolol Maleate 0.5%) 5 Ml Drops, 1 DROP OU BID, (Reported) Entered as Reported by: ASMITA ENNIS on 04/26/191641 Review of Systems Review of Systems Constitutional: No chills, No diaphoresis, No fever, No malaise, No weakness EENTM: No Blurred Vision Respiratory: Denies Cough Cardiovascular: Denies Chest Pain Gastrointestinal: Abdominal Pain; Denies Blood Streaked Stools, Denies Diarrhea, Denies Difficulty Swallowing; Nausea, Vomiting Genitourinary: Denies Burning, Denies Discharge, Denies Drainage, Denies Frequency Musculoskeletal: No back pain Skin: No change in color, No change in hair/nails All Other Systems Reviewed Negative Unless Noted: Yes Past Fvkquka-Uownkq-Lgwjhb Hx Patient Social History Tobacco Use?: No Substance use?: No Alcohol Use?: No Immunizations Up To Date First/Initial COVID19 Vaccinat: YES Second COVID19 Vaccination Naga: YES Third COVID19 Vaccination Date: YES Seasonal Allergies Seasonal Allergies: Yes Past Medical History Surgery/Hospitalization HX: Arthritis, Anemia, Gatroparesis; HTN Surgeries: Yes Appendectomy, Gallbladder, Hysterectomy, Oophorectomy Respiratory: Yes Asthma Cardiac: Yes (VASCULITIS) High Cholesterol, Hypertension Neurological: No Genitourinary: No Gastrointestinal: Yes Gastroesophageal Reflux, Esophagitis, Irritable Bowel Musculoskeletal: Yes Arthritis, Rheumatoid Arthritis Endocrine: Yes (NONALCOHOLIC LIVER DISEASE) HEENT: Yes Dysphagia, Glaucoma Cancer: No Psychosocial: No Integumentary: No Blood Disorders: Yes Family Medical History No Pertinent Family Hx Physical Exam Vital Signs Vital Signs - First Documented 11/21/22 15:44 Temp 36.3 Pulse 67 Resp 16 B/P (MAP) 123/61 (81) Pulse Ox 100 Capillary Refill : Height/Weight/BMI Height: '" Weight: lbs. oz. 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5 % Platelet Count 196 130-400 10^3/uL Mean Platelet Volume 10.6 9.0-12.2 fL Immature Granulocyte % (Auto) 1 % Neutrophils (%) (Auto) 79 H 42-75 % Lymphocytes (%) (Auto) 11 L 12-44 % Monocytes (%) (Auto) 8 0-12 % Eosinophils (%) (Auto) 1 0-10 % Basophils (%) (Auto) 1 0-10 % Neutrophils # (Auto) 6.1 1.8-7.8 10^3/uL Lymphocytes # (Auto) 0.8 L 1.0-4.0 10^3/uL Monocytes # (Auto) 0.6 0.0-1.0 10^3/uL Eosinophils # (Auto) 0.1 0.0-0.3 10^3/uL Basophils # (Auto) 0.1 0.0-0.1 10^3/uL Immature Granulocyte # (Auto) 0.1 0.0-0.1 10^3/uL Urine Color YELLOW Urine Clarity SL CLOUDY Urine pH 5.0 5-9 Urine Specific Orient 1.025 H 1.016-1.022 Urine Protein TRACE H NEGATIVE Urine Glucose (UA) NEGATIVE NEGATIVE Urine Ketones TRACE H NEGATIVE Urine Nitrite NEGATIVE NEGATIVE Urine Bilirubin NEGATIVE NEGATIVE Urine Urobilinogen 0.2 < = 1.0 MG/DL Urine Leukocyte Esterase 2+ H NEGATIVE Urine RBC (Auto) NEGATIVE NEGATIVE Urine RBC NONE /HPF Urine WBC 5-10 H /HPF Urine Squamous Epithelial Cells 5-10 /HPF Urine Crystals NONE /LPF Urine Bacteria MODERATE H /HPF Urine Casts PRESENT /LPF Urine Hyaline Casts 5-10 H /LPF Urine Mucus NEGATIVE /LPF Urine Yeast FEW H /HPF Urine Culture Indicated YES Sodium Level 135 135-145 MMOL/L Potassium Level 3.9 3.6-5.0 MMOL/L Chloride Level 107 98-107 MMOL/L Carbon Dioxide Level 12 L 21-32 MMOL/L Anion Gap 16 H 5-14 MMOL/L Blood Urea Nitrogen 38 H 35 H 7-18 MG/DL Creatinine 1.57 H 1.27 0.60-1.30 MG/DL Estimat Glomerular Filtration Rate 39 50 BUN/Creatinine Ratio 24 28 Glucose Level 144 H 70-105 MG/DL Calcium Level 9.4 8.5-10.1 MG/DL Corrected Calcium 9.5 8.5-10.1 MG/DL Total Bilirubin 0.6 0.1-1.0 MG/DL Aspartate Amino Transf (AST/SGOT) 51 H 5-34 U/L Alanine Aminotransferase (ALT/SGPT) 42 0-55 U/L Alkaline Phosphatase 268 H 40-136 U/L C-Reactive Protein High Sensitivity 0.80 H 0.00-0.50 MG/DL Total Protein 6.5 6.4-8.2 GM/DL Albumin 3.9 3.2-4.5 GM/DL Lipase 112 H 8-78 U/L Amylase Level 88 25-125 U/L Micro Results Microbiology 11/21/22 Urine Culture - Final, Complete Growth Consistent My Orders Orders - DAVIE JACOBS PA Ua Culture If Indicated (11/21/22 15:42) Cbc With Automated Diff (11/21/22 15:53) Comprehensive Metabolic Panel (11/21/22 15:53) Lipase (11/21/22 15:53) Hs C Reactive Protein (11/21/22 15:53) Ns Iv 1000 Ml (Sodium Chloride 0.9%) (11/21/22 15:53) Fecal Wbc (11/21/22 16:02) Iohexol Injection (Omnipaque 350 Mg/Ml 1 (11/21/22 16:15) Received Contrast (Hold Metformin- Contr (11/21/22 16:15) Ns (Ivpb) 100 Ml (Sodium Chloride 0.9% 1 (11/21/22 16:15) Urine Culture (11/21/22 16:03) Ct Abdomen/Pelvis Wo (11/21/22 15:53) Ns Iv 1000 Ml (Sodium Chloride 0.9%) (11/21/22 16:46) Ondansetron Injection (Zofran Injectio (11/21/22 17:00) Bun Creatinine & Gfr (11/21/22 17:41) Amylase (11/21/22 18:10) Iv Push Sponge Clipper Ed (11/21/22 ) Medications Given in ED Vital Signs/I&O 11/21/22 11/21/22 15:44 18:43 Temp 36.3 36.3 Pulse 67 67 Resp 16 16 B/P (MAP) 123/61 (81) 123/61 Pulse Ox 100 100 Blood Pressure Mean: 81 Departure Communication (PCP) PatientReviewed previous ER visits, H&P, lab testing. History of pancreatitis. She was admitted in 2019 with similar symptoms. History of cholecystectomy, hysterectomy, appendectomy. Patient was sent to the ED by her primary care physician in [place] for concern for pancreatitis. She states she has had intermittent nausea, vomiting diarrhea over the past 2 and half weeks. Has been on a clear liquid diet. She states symptoms seem to be improving until this morning after she attempted to drink some beef broth and vomited a few times. She states she felt weak Thursday fell but denies hitting her head. She has not been feeling as weak since Thursday. She denies of any blood or mucousy stools. She does report some very mild generalized abdominal pain located right lower quadrant and epigastric. No chest pain or shortness of breath. Denies alcohol use, NSAID use or history of high triglycerides. Patient on arrival afebrile with stable vital signs. CBC, CMP, amylase, lipase urinalysis was ordered. CBC was grossly unremarkable. Chemistry showed a BUN of 38, creatinine 1.57 GFR 39. CRP 0.80. Lipase 112. Amylase 89. Urinalysis did note leukocytes and white blood cells concerning for potential UTI. Denies of any specific urinary symptoms. Did start to feel nauseous and received IV Zofran. After check of her acute kidney injury patient received a second liter of fluid. She refused anything for pain as she is currently pain-free. She does not appear septic. CT abdomen pelvis without contrast was ordered. CT scan showed minimal fat stranding about the pancreatic head suggesting early pancreatitis. Diffuse wall thickening throughout the colon which could be due to underdistention with colit is. She states the diarrhea seems to be improving. She did finish a round of Bactrim and currently on doxycycline for wound to her left lateral hip. This wound appears to be healing without any fluctuant mass. No active drainage. She denies of any specific pain to this location. She Was treated for a infection to her buttock a few weeks ago but states that improved few weeks ago. Attempted to get GI cultures but she had no episodes of diarrhea here. She remained stable. Rechecked her kidney function which note BUN of 35, creatinine 1.27 GFR 50. She remained asymptomatic. Discussed with patient appears to have mild pancreatitis. Discussed admission versus discharge. She states she feels well enough and much better and currently asymptomatic and would like to be discharged home. Discussed with patient that this may potentially worsen and require admission for IV fluids and pain medication. She acknowledges. I did discuss continue with a clear liquid diet. She has a follow-up with her primary care physician on Thursday. if any worsening symptoms it is strongly recommend to return back to ED for further evaluation. Patient was tolerating p.o. fluids here without any pain. She states she does not feel weak or fatigued. Will discharge with Keflex for potential UTI. Patient has tolerated Keflex in the past Impression Primary Impression: Pancreatitis Additional Impression: UTI (urinary tract infection) Disposition: HOME, SELF-CARE Condition: Stable Departure-Patient Inst. Decision time for Depature: 18:32 Referrals: SEGUNDO DNIERO APRN (PCP) Primary Care Physician [facility] (Family) Primary Care Physician Patient Instructions: Acute pancreatitis Add. Discharge Instructions: Recommend plain water, fruit juices without pulp such as grape juice, filtered apple juice, cranberry juice, soup broth, popsicles,, coffee or tea without milk or nondairy creamer, sodas, clear nonfat broths. If any worsening symptoms such as pain or vomiting you need to return back to ED. if symptoms continue to improve follow-up your PCP next Thursday for reevaluation All discharge instructions reviewed with patient and/or family. Voiced understanding. Scripts Cephalexin (Cephalexin) 250 Mg/5 Ml Susp.recon 500 MG PO BID for 7 Days, #140 ML Prov: DAVIE JACOBS 11/21/22 DAVIE JACOBS Nov 21, 2022 16:01
[2022-11-21] MEDS ORDERED: IOHEXOL 350 MG/ML 100 ML (OMNIPAQUE 350) VIAL IV ONE (16:15)
[2022-11-21] MEDS ORDERED: HOLD METFORMIN - RECEIVED CONTRAST 20 ML VIAL IV SCH (16:15)
[2022-11-21] MEDS ORDERED: NS 100 ML (IVPB) BAG IV ONE (16:15)
[2022-11-21 16:16] LABS: BASOPHILS # (AUTO) 0.1 10^3/uL (0.0-0.1); BASOPHILS % (AUTO) 1 % (0-10); EOSINOPHILS # (AUTO) 0.1 10^3/uL (0.0-0.3); EOSINOPHILS % (AUTO) 1 % (0-10); HEMATOCRIT 35 % (35-52); HEMOGLOBIN 11.1 g/dL (11.5-16.0); LYMPHOCYTES # (AUTO) 0.8 10^3/uL (1.0-4.0); LYMPHOCYTES % (AUTO) 11 % (12-44); MEAN CORPUSCULAR HEMOGLOBIN 29 pg (25-34); MEAN CORPUSCULAR HGB CONC 32 g/dL (32-36); MEAN CORPUSCULAR VOLUME 89 fL (80-99); MEAN PLATELET VOLUME 10.6 fL (9.0-12.2); MONOCYTES # (AUTO) 0.6 10^3/uL (0.0-1.0); MONOCYTES % (AUTO) 8 % (0-12); NEUTROPHILS # (AUTO) 6.1 10^3/uL (1.8-7.8); NEUTROPHILS % (AUTO) 79 % (42-75); PLATELET COUNT 196 10^3/uL (130-400); WHITE BLOOD COUNT 7.8 10^3/uL (4.3-11.0)
[2022-11-21 16:26] LABS: ALBUMIN 3.9 GM/DL (3.2-4.5); POTASSIUM 3.9 MMOL/L (3.6-5.0)
[2022-11-21 16:27] LABS: CALCIUM 9.4 MG/DL (8.5-10.1); CLARITY,URINE SL CLOUDY; COLOR,URINE YELLOW; GLUCOSE, URINE (UA) NEGATIVE (NEGATIVE); PROTEIN,URINE TRACE (NEGATIVE)
[2022-11-21 16:28] LABS: BACTERIA,URINE MODERATE /HPF; BILIRUBIN,URINE NEGATIVE (NEGATIVE); KETONES,URINE TRACE (NEGATIVE); LEUKOCYTE ESTERASE ,URINE 2+ (NEGATIVE); NITRITE,URINE NEGATIVE (NEGATIVE); TOTAL PROTEIN 6.5 GM/DL (6.4-8.2); YEAST,URINE FEW /HPF
[2022-11-21 16:30] LABS: BILIRUBIN,TOTAL 0.6 MG/DL (0.1-1.0)
[2022-11-21 16:32] LABS: CREATININE SERUM 1.57 MG/DL (0.60-1.30)
[2022-11-21] MEDS ORDERED: ONDANSETRON 4 MG/2 ML (SDV) Z0FRAN IVP ONE (17:00)
--- NOTE | 2022-11-21 17:52 | Diagnostic Imaging Report ---
INDICATION: Right lower quadrant and epigastric pain. Possible pancreatitis. EXAMINATION: CT abdomen and pelvis without contrast, 11/21/2022. All CT scans use one or more of the following dose optimizing techniques: automated exposure control, MA and/or KvP adjustment based on patient size and exam type or iterative reconstruction. FINDINGS: The nonopacified liver and spleen normal. Postcholecystectomy changes noted. Adrenal glands unremarkable. Kidneys normal. Visualized lung bases clear. The pancreas is fairly unremarkable; however, there is a vague suggestion of surrounding fat stranding near the pancreatic head suggesting early pancreatitis. There is minimal dilatation of the mid pancreatic duct. There is wall thickening diffusely throughout the colon to the rectosigmoid which could be due to colitis; however, underdistention could cause this appearance. Diverticular disease is noted without evidence for acute diverticulitis. There is no obstructive process. Appendix is not seen, possibly surgically absent, with clips in the right lower quadrant. There is no ascites. No free air. No acute osseous abnormality. Postoperative changes noted in the left hip. There is an overlying subcutaneous oval fluid like collection possibly a postsurgical seroma or hematoma. IMPRESSION: 1. Minimal fat stranding about the pancreatic head suggesting early pancreatitis correlate with amylase and lipase. 2. Diffuse wall thickening throughout the colon which could be due to underdistention with colitis not excluded. 3. Otherwise incidental findings as above. Dictated by: Dictated on workstation # [id number]
[2022-11-21 18:18] LABS: CREATININE SERUM 1.27 MG/DL (0.60-1.30)
[2022-11-21] MEDS ORDERED: CEPH250S PO (18:38)
[2022-11-21 18:43] VITALS: BP 123/61
== END 2022-11-21 18:46 | disposition home or self-care (01) ==
LOC: EDUNIT# 15:33 → ER 15:38
DX: N39.0 Urinary tract infection, site not specified (principal); K85.90 Acute pancreatitis without necrosis or infection, unspecified; Z90.49 Acquired absence of other specified parts of digestive tract
CPT/HCPCS: 36415; 74176; 80053; 81000; 82150; 82565; 83690; 84520; 85025; 86141; 87088; 96361; 96374